=== PATIENT | female | born 1950 | race Caucasian/White ===

== ENCOUNTER 2018-02-16 08:38 | Day surgery (SDC) | END 2018-02-16 13:54 | disposition home or self-care (01) ==

== ENCOUNTER 2018-04-12 20:41 | Emergency (ER) | END 2018-04-13 00:17 | disposition home or self-care (01) ==

== ENCOUNTER 2018-04-21 19:13 | Inpatient (IN) | END 2018-05-12 18:22 | disposition home health service (06) | DRG 193 ==

== ENCOUNTER 2019-02-27 13:21 | Inpatient (IN) | payer MEDICARE, OTHER ==
[~2019-02-27] VITALS: Ht 160 cm; Wt 118.0 kg
[~2019-02-27 13:21] MED LIST: ASPI-817 PO; CYCL5TAB PO; FURO-109 PO; GLIP5TAB13 PO; ISOS60TA PO; LISI40TA3 PO; METF100010 PO; METO-336 PO; MONT10TA24 PO; OXYB5TAB22 PO; SILD20TA PO; SIMV40TA2 PO; TRAM50TA PO
[2019-02-27] MEDS ORDERED: morphine 4 MG/ML VIAL IV STA (13:55)
[2019-02-27] MEDS ORDERED: ONDANSETRON 4 MG INJ IV STA (13:55)
[2019-02-27] MEDS ORDERED: ASPIRIN 325 MG TAB PO STA (13:55)
[2019-02-27] MEDS ORDERED: PANTOPRAZOLE 40 MG INJ IV ONE (14:00)
[2019-02-27] MEDS ORDERED: IPRATROPIUM (NEB) 0.5 MG/2.5 ML AMP NEB STA (14:01)
[2019-02-27] MEDS ORDERED: ALBUTEROL 0.083% (NEB) 2.5 MG/3 ML AMP NEB STA (14:01)
--- NOTE | 2019-02-27 14:15 | ERD ---
ER Documentation Chief Complaint Chief Complaint CHEST PAIN RADIATING TO LT SHOULDER AND RT FOOT PAIN X 3 DAYS HPI This is a 68-year-old female with significant past medical history which includes asthma, sleep apnea, diabetes mellitus type 2, hyperlipidemia, hypertension who presents to the emergency department complaining of chest pain that began 3 days prior to arrival. The patient indicates that the pain has been intermittent. It is a pressure-like sensation. Just prior to arrival began to radiate to her left lower quadrant. Her daughter became concerned and immediately brought her to the emergency department to be further evaluated. The patient states that the pain does not radiate to her back. She is complaining of mild difficulty breathing but states that her dyspnea is similar nature to previous asthma exacerbations. She denies any shortness of breath at rest or exertion. The patient takes aspirin on a daily basis but did not take her aspirin today. The patient also states that she has chronic pain and takes cyclobenzaprine for muscle relaxants tramadol Naprosyn and meloxicam. The patient has been compliant with her medications. She is also on 40 mg of Lasix on a daily basis. The patient is also complaining of right foot pain. She states that this is progressively worsened over the past 3 days. On January 08, 2019 roughly a month and a half ago the patient underwent an anterior Royal performed by Dr. Jean MARKS. She states the pain is over the inoculation site on the dorsal aspect of the right foot. She does complain of mild right calf tenderness for the past 3 days. She however denies any swelling of her lower extremities. ROS All systems reviewed and are negative except as per history of present illness. Medications Home Meds Active Scripts Aspirin* (Aspirin* EC) 81 Mg Rhina., 81 MG PO DAILY for 30 Days Prov:GINO CASTELLANOLANA 05/12/18 Reported Medications Sildenafil Citrate* (Sildenafil Citrate*) 20 Mg Tablet, 20 MG PO TID, TAB 02/16/18 Metformin Hcl* (Metformin Hcl*) 1,000 Mg Tablet, 1000 MG PO WITH BREAKFAST DINNE, #60 TAB 02/16/18 Furosemide* (Lasix*) 40 Mg Tablet, 40 MG PO DAILY, TAB 02/16/18 Isosorbide Mononitrate* (Isosorbide Mononitrate*) 60 Mg Tab.er.24h, 60 MG PO DAILY, TAB 5/22/18 Glipizide* (Glipizide*) 5 Mg Tablet, 5 MG PO AC BREAKFAST, TAB 02/16/18 Montelukast Sodium* (Montelukast Sodium*) 10 Mg Tablet, 10 MG PO QHS, #30 TAB 02/16/18 Lisinopril* (Lisinopril*) 40 Mg Tablet, 40 MG PO DAILY, #30 TAB 02/16/18 Cyclobenzaprine Hcl* (Cyclobenzaprine Hcl*) 5 Mg Tablet, 5 MG PO Q8H PRN for MUSCLE SPASMS, #60 TAB 02/16/18 Tramadol Hcl* (Ultram*) 50 Mg Tablet, 50 MG PO Q6H PRN for PAIN, TAB 02/16/18 Metoprolol Succinate* (Toprol XL*) 100 Mg Tab.sr.24h, 100 MG PO DAILY, #30 TAB 02/16/18 Oxybutynin Chloride* (Ditropan* XL) 5 Mg Tabsr, 5 MG PO DAILY, TAB.SA 02/16/18 Simvastatin* (Zocor*) 40 Mg Tablet, 40 MG PO QHS, #30 TAB 02/16/18 Allergies Allergies: Coded Allergies: No Known Allergy (Unverified , 04/21/18) PMhx/Soc History of Surgery: Yes (LAP GAMA, C/S, arthrectomy rgt leg) Anesthesia Reaction: No Hx Neurological Disorder: No Hx Respiratory Disorders: Yes (COPD, SLEEP APNEA) Hx Cardiac Disorders: Yes (HTN) Hx Psychiatric Problems: No Hx Miscellaneous Medical Probl: Yes (See EMR for details. ) Hx Alcohol Use: No Hx Substance Use: No Hx Tobacco Use: No Smoking Status: Never smoker Physical Exam Vitals Vital Signs Date Temp Pulse Resp B/P (MAP) Pulse Ox O2 O2 Flow FiO2 Time Delivery Rate 02/27/19 Nasal 3 14:11 Cannula 02/27/19 98.1 79 18 173/71 96 13:23 (105) Physical Exam Constitutional:Well-developed. Well-nourished. HEENT:Normocephalic. Atraumatic.Pupils were equal round reactive to light. Moist mucous membranes.No tonsillar exudates. Neck: No nuchal rigidity. No lymphadenopathy. No posterior cervical spine tenderness or step-offs. Respiratory: Not using accessory muscles of respiration.Lungs were clear to auscultation bilaterally. No rhonchi. No rales. Wheezing on end auscultation bilaterally Cardiovascular: Regular rate regular rhythm.No murmurs. No rubs were appreciated.S1, S2 normal. Distal pulses are palpable 2+ bilaterally. No reproducible chest tenderness crepitus or ecchymosis. GI: Abdomen was obese so exam is limited due to body habitus. Nontender. Non Distended. No pulsatile abdominal masses or bruits. No rebound. No guarding. B owel sounds were present and normal. Muscle skeletal: Full range of motion of both the upper and lower extremities bilaterally.Normal muscle tone.tenderness of the right calf with no asymmetrical swelling. Negative Homans sign. Skin: No petechia, no purpura. No lesions on the palms or the soles of the feet. No maculopapular rash. Mild tenderness of the dorsal aspect of the right foot over the proximal fifth metatarsal with no obvious bony deformities. Patient states this was the inoculation site for her procedure but there is no pain out of proportion to physical exam, no ecchymosis. NEURO: Patient was alert, awake, orientated x3.No facial droop. Gait observed and normal with no ataxia.Speech had regular rate and rhythm. No focal neurological deficits. Result Diagram: 02/27/19 1408 02/27/19 1408 Results 24 hrs Laboratory Tests Test 02/27/19 14:08 White Blood Count 13.0 10^3/ul Red Blood Count 4.73 10^6/ul Hemoglobin 15.2 g/dl Hematocrit 46.4 % Mean Corpuscular Volume 98.1 fl Mean Corpuscular Hemoglobin 32.1 pg Mean Corpuscular Hemoglobin Concent 32.8 g/dl Red Cell Distribution Width 13.0 % Platelet Count 225 10^3/UL Mean Platelet Volume 10.9 fl Immature Granulocytes % 0.400 % Neutrophils % 81.4 % Lymphocytes % 11.0 % Monocytes % 6.2 % Eosinophils % 0.8 % Basophils % 0.2 % Nucleated Red Blood Cells % 0.0 /100WBC Immature Granulocytes # 0.050 10^3/ul Neutrophils # 10.6 10^3/ul Lymphocytes # 1.4 10^3/ul Monocytes # 0.8 10^3/ul Eosinophils # 0.1 10^3/ul Basophils # 0.0 10^3/ul Nucleated Red Blood Cells # 0.0 10^3/ul Prothrombin Time 12.8 Sec Prothrombin Time Ratio 1.0 INR International Normalized Ratio 0.95 Activated Partial Thromboplast Time 31.5 Sec Urine Color YELLOW Urine Clarity SLIGHTLY CLOUDY Urine pH 5.0 Urine Specific Jewett 1.021 Urine Ketones NEGATIVE mg/dL Urine Nitrite NEGATIVE mg/dL Urine Bilirubin NEGATIVE mg/dL Urine Urobilinogen NEGATIVE mg/dL Urine Leukocyte Esterase NEGATIVE Cornelio/ul Urine Microscopic RBC 3 /HPF Urine Microscopic WBC 2 /HPF Urine Squamous Epithelial Cells FEW /HPF Urine Bacteria FEW /HPF Urine Mucus FEW /HPF Urine Hemoglobin NEGATIVE mg/dL Urine Glucose NEGATIVE mg/dL Urine Total Protein NEGATIVE mg/dl Sodium Level 139 mmol/L Potassium Level 3.9 mmol/L Chloride Level 100 mmol/L Carbon Dioxide Level 31 mmol/L Anion Gap 8 Blood Urea Nitrogen 19 mg/dl Creatinine 0.69 mg/dl Est Glomerular Filtrat Rate mL/min > 60 mL/min Glucose Level 188 mg/dl Calcium Level 9.2 mg/dl Total Bilirubin 1.0 mg/dl Direct Bilirubin 0.00 mg/dl Indirect Bilirubin 1.0 mg/dl Aspartate Amino Transf (AST/SGOT) 17 IU/L Alanine Aminotransferase (ALT/SGPT) 22 IU/L Alkaline Phosphatase 69 IU/L Creatine Kinase 57 IU/L Creatine Kinase Index 0.7 Creatinine Kinase MB (Mass) 0.42 ng/ml Troponin I < 0.012 ng/ml B-Type Natriuretic Peptide 601 PG/ML Total Protein 7.2 g/dl Albumin 3.9 g/dl Globulin 3.30 g/dl Albumin/Globulin Ratio 1.18 Current Medications Medications Dose Sig/Herb Start Time Status Last (Trade) Ordered Route PRN Stop Time Admin Dose Reason Admin Aspirin 325 mg ONCE STAT 02/27/19 DC 02/27/19 (Aspirin) PO 13:55 02/27/19 14:37 14:01 Morphine 4 mg ONCE STAT 02/27/19 DC 02/27/19 Sulfate IV 13:55 02/27/19 14:37 (morphine) 14:01 Ondansetron 4 mg ONCE STAT 02/27/19 DC 02/27/19 HCl (Zofran IV 13:55 02/27/19 14:37 Inj) 14:01 40 mg ONCE ONCE 02/27/19 DC 02/27/19 Pantoprazole IV 14:00 02/27/19 14:37 (Protonix 14:01 Iv) Albuterol 5 mg ONCE STAT 02/27/19 DC 02/27/19 (Proventil NEB 14:01 02/27/19 14:56 0.083% (Neb)) 14:02 Ipratropium 0.5 mg ONCE STAT 02/27/19 DC 02/27/19 [place] NEB 14:01 02/27/19 14:56 (Atrovent 14:02 0.02% (Neb)) Ondansetron 4 mg ER BRIDGE 02/27/19 HCl (Zofran PRN IV 15:30 02/28/19 Inj) NAUSEA/VOMITI 15:29 NG 650 mg ER BRIDGE 02/27/19 Acetaminophen PRN PO 15:30 02/28/19 (Tylenol .MILD PAIN 15:29 Tab) 1-3 OR TEMP Procedures/MDM The patient presented to the emergency department with chest pain. My clinical evaluation and workup was to distinguish minor causes of chest pain from acute life threatening conditions such as myocardial infarction, pulmonary embolism, aortic dissection, esophageal rupture, cardiac tamponade. The patient was placed on a vocational training director and continuous pulse oximetry. IV access established by nursing staff. The patient received aspirin. She was also given morphine and Zofran. Her chest pain had improved. Initially it was 8 out of 10 intensity. After opiate analgesic medication aspirin the patient's chest pain improved to 4 out of 10. 12 Lead EKG tracing ordered and reviewed by myself showed: Normal sinus rhythm of 78 bpm and no arrhythmia. CT interval normal. Frequent PVCs. QRS duration normal. No ST segment elevation No ST segment depression. No changes consistent with acute ischemia. The patient also complained of right calf tenderness. There is no signs of arterial insufficiency. Venous duplex ultrasounds indicated there is no evidence of a deep vein thrombosis. When the patient initially arrived she had mild hypoxia. She is on home oxygen between 5 AM and 10 AM. She states she utilizes her CPAP on a daily basis between midnight and 5 AM. She does not know how many liters of home oxygen she requires. Patient will be admitted to the physician Dr. De La Paz who she is seen in the past. I spoke with Dr. Pacheco. The patient will receive serial twelve-lead EKG tracings and cardiac set of enzymes. Departure Diagnosis: Primary Impression: Chest pain Chest pain type: unspecified Qualified Codes: R07.9 - Chest pain, unspecified Additional Impression: Asthma exacerbation Asthma severity: mild Asthma persistence: intermittent Qualified Codes: J45.21 - Mild intermittent asthma with (acute) exacerbation Condition: Serious SUGAR KHOURY MD Feb 27, 2019 14:15
[2019-02-27] MEDS ORDERED: ACETAMINOPHEN 325 MG TAB PO PRN (15:30)
[2019-02-27] MEDS ORDERED: ONDANSETRON 4 MG INJ IV PRN ×2 (15:30→19:00)
[2019-02-27] MEDS ORDERED: GABA100C14 PO (16:15)
[2019-02-27] MEDS ORDERED: NAPR-688 PO (16:15)
[2019-02-27] MEDS ORDERED: ASPI-817 PO (16:16)
[2019-02-27] MEDS ORDERED: FLUT1BLS INHALATION (16:16)
[2019-02-27] MEDS ORDERED: NITR0.4T32 SL (16:16)
[2019-02-27] MEDS ORDERED: METO10TA3 PO (16:17)
[2019-02-27] MEDS ORDERED: POTA10TA37 PO (16:18)
[2019-02-27] MEDS ORDERED: CYCL5TAB PO (16:18)
[2019-02-27] MEDS ORDERED: FURO40TA4 PO (16:19)
[2019-02-27] MEDS ORDERED: GLIP5TAB13 PO (16:19)
[2019-02-27] MEDS ORDERED: LISI40TA3 PO (16:20)
[2019-02-27] MEDS ORDERED: ISOS60TA PO (16:20)
[2019-02-27] MEDS ORDERED: METF100010 PO (16:21)
[2019-02-27] MEDS ORDERED: MONT10TA24 PO (16:22)
[2019-02-27] MEDS ORDERED: METO-336 PO (16:22)
[2019-02-27] MEDS ORDERED: OXYB5TAB7 PO (16:23)
[2019-02-27] MEDS ORDERED: SILD20TA PO (16:23)
[2019-02-27] MEDS ORDERED: TRAM50TA PO (16:24)
[2019-02-27] MEDS ORDERED: SIMV40TA2 PO (16:24)
[2019-02-27] MEDS ORDERED: MELO15TA30 PO (16:25)
[2019-02-27] MEDS ORDERED: ALBU18HF INHALATION (16:25)
[2019-02-27 19:00] VITALS: BP 128/60; PULSE 70; RESP 20
[2019-02-27] MEDS ORDERED: GLUCAGON 1 MG INJ IM PRN (19:30)
[2019-02-27] MEDS ORDERED: GLUCOSE GEL 15 GRAM TUBE PO PRN ×2 (19:30)
[2019-02-27] MEDS ORDERED: GLUCOSE GEL 15 GRAM TUBE BUCCAL PRN (19:30)
[2019-02-27] MEDS ORDERED: DEXTROSE 50% 50 ML SYRINGE IV PRN ×2 (19:30)
[2019-02-27] MEDS ORDERED: POTASSIUM CHLORIDE (SR) 20 MEQ TAB PO STA (19:47)
[2019-02-27 20:00] VITALS: PULSE 80
[2019-02-27] MEDS: INSULIN ASPART [NOVOLOG] 3 ML PEN SC SCH (21:00)
[2019-02-28] VITALS (9 sets, daily range): BP systolic 129–160; BP diastolic 59–72; PULSE 55–86; RESP 18–20
[2019-02-28] MEDS: morphine 2 MG INJ IV PRN ×4 (01:34→20:53)
[2019-02-28] MEDS: ACCU-CHEK XX SCH (02:00)
[2019-02-28] MEDS: INSULIN ASPART [NOVOLOG] 3 ML PEN SC SCH ×4 (07:47→20:52)
[2019-02-28] MEDS ORDERED: NITROGLYCERIN (SL) 0.4 MG TAB SL PRN (11:30)
--- NOTE | 2019-02-28 12:25 | HP ---
Date/Time of Note Date/Time of Note DATE: 02/28/19 TIME: 12:20 Assessment/Plan VTE Prophylaxis Risk score (from Ns)>0 risk: 6 SCD applied (from Nsg): Yes Pharmacological prophylaxis: LMWH Lines/Catheters IV Catheter Type (from Nrsg): Saline Lock Assessment/Plan Assessment/Plan -Chest pain, rule out acute coronary syndrome will obtain cardiac enzymes q. 8 hours x 3, 2D echo. Dr. Gould is asked to see patient in cardiology consultation. -Intractable right foot pain swelling and inability to walk. Will obtain MRI of the right foot, podiatry consult . -Diabetes mellitus type 2 -HTN -Diastolic dysfunction congestive heart failure action fraction of 50% -Morbid obesity with BMI of 46.1 Further recommendations based on clinical course. Plan of care discussed with Dr. De La Paz. Result Diagram: 02/28/19 0521 02/28/19 0521 Results 24hrs Laboratory Tests Test 02/27/19 14:08 02/27/19 19:37 02/27/19 19:43 02/27/19 20:23 White Blood Count 13.0 H Red Blood Count 4.73 # Hemoglobin 15.2 # Hematocrit 46.4 # Mean Corpuscular 98.1 Volume Mean Corpuscular 32.1 Hemoglobin Mean Corpuscular 32.8 Hemoglobin Concent Red Cell 13.0 Distribution Width Platelet Count 225 # Mean Platelet 10.9 H Volume Immature 0.400 Granulocytes % Neutrophils % 81.4 H Lymphocytes % 11.0 L Monocytes % 6.2 Eosinophils % 0.8 Basophils % 0.2 Nucleated Red 0.0 Blood Cells % Immature 0.050 H Granulocytes # Neutrophils # 10.6 H Lymphocytes # 1.4 Monocytes # 0.8 Eosinophils # 0.1 Basophils # 0.0 Nucleated Red 0.0 Blood Cells # Prothrombin Time 12.8 Prothrombin Time 1.0 Ratio INR International 0.95 Normalized Ratio Activated 31.[address] Time Urine Color YELLOW Urine Clarity SLIGHTLY CLOUDY A Urine pH 5.0 Urine Specific 1.021 [place] Urine Ketones NEGATIVE Urine Nitrite NEGATIVE Urine Bilirubin NEGATIVE Urine Urobilinogen NEGATIVE Urine Leukocyte NEGATIVE Esterase Urine Microscopic 3 RBC Urine Microscopic 2 WBC Urine Squamous FEW Epithelial Cells Urine Bacteria FEW A Urine Mucus FEW A Urine Hemoglobin NEGATIVE Urine Glucose NEGATIVE Urine Total NEGATIVE Protein Sodium Level 139 Potassium Level 3.9 Chloride Level 100 Carbon Dioxide 31 Level Anion Gap 8 Blood Urea 19 Nitrogen Creatinine 0.69 Est Glomerular > 60 Filtrat Rate mL/min Glucose Level 188 Calcium Level 9.2 Total Bilirubin 1.0 Direct Bilirubin 0.00 Indirect Bilirubin 1.0 Aspartate Amino 17 Transf (AST/SGOT) Alanine 22 Aminotransferase ( ALT/SGPT) Alkaline 69 Phosphatase Creatine Kinase 57 56 Creatine Kinase 0.7 1.3 Index Creatinine Kinase 0.42 0.73 MB (Mass) Troponin I < 0.012 < 0.012 B-Type Natriuretic 601 H Peptide Total Protein 7.2 Albumin 3.9 Globulin 3.30 H Albumin/Globulin 1.18 Ratio Bedside Glucose 86 156 Test 02/28/19 00:24 02/28/19 05:21 02/28/19 07:45 02/28/19 11:21 Creatine Kinase 57 Creatine Kinase 1.5 Index Creatinine Kinase 0.83 MB (Mass) Troponin I < 0.012 < 0.012 White Blood Count 11.9 H Red Blood Count 4.37 Hemoglobin 14.1 Hematocrit 43.4 Mean Corpuscular 99.3 Volume Mean Corpuscular 32.3 Hemoglobin Mean Corpuscular 32.5 Hemoglobin Concent Red Cell 13.0 Distribution Width Platelet Count 210 Mean Platelet 10.8 H Volume Immature 0.400 Granulocytes % Neutrophils % 71.1 Lymphocytes % 16.5 Monocytes % 10.5 Eosinophils % 1.2 Basophils % 0.3 Nucleated Red 0.0 Blood Cells % Immature 0.050 H Granulocytes # Neutrophils # 8.4 H Lymphocytes # 2.0 Monocytes # 1.3 H Eosinophils # 0.1 Basophils # 0.0 Nucleated Red 0.0 Blood Cells # Sodium Level 140 Potassium Level 4.7 Chloride Level 100 Carbon Dioxide 35 H Level Anion Gap 5 Blood Urea 17 Nitrogen Creatinine 0.71 Est Glomerular > 60 Filtrat Rate mL/min Glucose Level 100 # Calcium Level 9.0 Bedside Glucose 103 142 HPI/ROS Admit Date/Time Admit Date/Time Feb 27, 2019 at 15:27 Hx of Present Illness The patient is 68-year-old female with diabetes mellitus type 2, congestive heart failure, hypertension, hyperlipidemia, asthma, osteoarthritis, sleep apnea and morbid obesity. Patient presented to the emergency room with complaints of chest pain of 3 days duration which has been intermittent. Patient describes pain as pressure-like sensation associated with mild difficulty breathing. Patient was brought to the emergency room by her daughter. Patient also complains of right foot pain and swelling stated that she is unable to step on it. Patient denies any fever chills denies any nausea vomiting, diarrhea, constipation. Patient was given morphine and Zofran in the emergency room. Patient is admitted for further evaluation and management to telemetry floor for further evaluation and management. ROS 12 point review of system is negative except for what mentioned in HPI PMH/Family/Social Past Medical History per HPI Medications Current Medications Acetaminophen (Tylenol Tab) 650 mg ER BRIDGE PRN PO .MILD PAIN 1-3 OR TEMP; Start 02/27/19 at 15:30; Stop 02/28/19 at 15:29 Morphine Sulfate (morphine) 2 mg Q4H PRN IV SEVERE PAIN LEVEL 7-10 Last administered on 02/28/19at 11:19; Admin Dose 2 MG; Start 02/27/19 at 19:00 Ondansetron HCl (Zofran Inj) 4 mg Q6H PRN IV NAUSEA AND/OR VOMITING; Start 02/27/19 at 19:00 Diagnostic Test (Pha) (Accu-Chek) 1 ea 02 XX ; Start 02/28/19 at 02:00 Insulin Aspart (Novolog Insulin Pen) NOVOLOG *MODERATE* ALGORITHM WITH MEALS BEDTIME SC ; Start 02/27/19 at 21:00 Miscellaneous Information 1 ea NOTE XX ; Start 02/27/19 at 19:30 Glucose (Glutose) 15 gm Q15M PRN PO DECREASED GLUCOSE; Start 02/27/19 at 19:30 Glucose (Glutose) 22.5 gm Q15M PRN PO DECREASED GLUCOSE; Start 02/27/19 at 19:30 Dextrose (D50w Syringe) 25 ml Q15M PRN IV DECREASED GLUCOSE; Start 02/27/19 at 19:30 Dextrose (D50w Syringe) 50 ml Q15M PRN IV DECREASED GLUCOSE; Start 02/27/19 at 19:30 Glucagon (Glucagen) 1 mg Q15M PRN IM DECREASED GLUCOSE; Start 02/27/19 at 19:30 Glucose (Glutose) 15 gm Q15M PRN BUCCAL DECREASED GLUCOSE; Start 02/27/19 at 19:30 Nitroglycerin (Nitroglycerin (Sl Tab) 0.4 Mg) 1 tab Q5M PRN SL ANGINA; Start 02/28/19 at 11:30 Furosemide (Lasix) 40 mg DAILY IV ; Start 02/28/19 at 11:30 Aspirin (Halfprin) 81 mg DAILY PO ; Start 03/01/19 at 09:00 Isosorbide Mononitrate (Imdur) 60 mg DAILY PO ; Start 03/01/19 at 09:00 Lisinopril (Zestril) 40 mg DAILY PO ; Start 03/01/19 at 09:00 Metoprolol Succinate (Toprol Xl) 100 mg DAILY PO ; Start 03/01/19 at 09:00 Miscellaneous Information 40 mg QHS PO ; Start 02/28/19 at 21:00; Status UNV Coded Allergies: No Known Allergy (Unverified , 02/27/19) Past Surgical History Past Surgical Hx: other (LAP GAMA, arthrectomy rgt leg)) Family History Significant Family History: no pertinent family hx Social History Alcohol Use: none Smoking Status: Former smoker Drug Use: none Exam/Review of Systems Vital Signs Vitals Vital Signs Date Temp Pulse Resp B/P (MAP) Pulse Ox O2 O2 Flow FiO2 Time Delivery Rate 02/28/19 98.0 71 19 160/64 96 11:51 (96) 02/28/19 Nasal 2.0 07:40 Cannula Intake and Output 02/27/19 02/27/19 02/28/19 1515:00 23:00 07:00 IntakeIntake Total 700 ml BalanceBalance 700 ml Exam Constitutional: alert, oriented Head: normocephalic Neck: supple Respiratory: clear to auscultation Cardiovascular: regular rate and rhythm Gastrointestinal: soft, non-tender Musculoskeletal: nl extremities to inspection Extremities: normal pulses, other (R foot swelling and tenderness) Neurological: nl mental status REBECCA CASTELLANO Feb 28, 2019 12:25
[2019-02-28] MEDS: FUROSEMIDE 40 MG INJ IV SCH (13:08)
--- NOTE | 2019-02-28 15:31 | QN ---
Documentation Comment As Physician Advisor I have reviewed the chart and have determined that as of today, this patient continues to receive medically necessary care required for the diagnosis and treatment of illness or injury. There has been no unreasonable delay in the rendering of medically necessary services, and this medically necessary care requires a length of stay expected to be greater than two midnights. Additional information gained during the stay now suggests this patient should have been classified as an inpatient at the time of admission, and I will change the status to inpatient to reflect that medical judgment. Besides the notes from the medical providers, the following information was used in this determination: Intractible foot pain requiring imaging and consultation CHF, Diabetes, obesity, hypertension as comorbidities to admission for chest pain, rule out [place]. Please call me at [phone] with questions. DARCY LOPEZ MD Feb 28, 2019 15:31
--- NOTE | 2019-02-28 15:31 | CONS ---
DATE OF ADMISSION: 02/27/2019 DATE OF CONSULTATION: 02/28/2019 REASON FOR CONSULTATION: Chest pain, assess for acute coronary syndrome. REQUESTING PHYSICIAN: Dr. De La Paz. HISTORY OF PRESENT ILLNESS: Ms. Alegria is a 68-year-old female with history of diabetes mellitus, hypertension, possible urinary incontinence, dyslipidemia, diabetes mellitus, possible pulmonary hypertension, obstructive sleep apnea, prior cholecystectomy, possible PAD who presented with complaints of substernal chest pain ongoing for 1 week per patient, 3 days per chart biopsy, describes a pressure-like sensation, occurring at rest racing down through her abdomen and no change with physical activity and associated right foot and ankle pain, heel pain, inability to ambulate secondary to pain. Upon arrival in the emergency department, temperature 98.1, blood pressure 170/71, pulse 70, respiratory rate 18, satting 96%. The patient's labs showed white count 13, hemoglobin 15.2, platelet count 225, a sodium of 139, potassium 3.9, creatinine 0.69, BUN 19. Troponin negative. BNP of 601. The patient underwent a venous ultrasound revealing no sonographic evidence for DVT. A chest x-ray that revealed cardiomegaly and central pulmonary vascular congestion. The patient's electrocardiogram revealed sinus rhythm, rate of 78, normal axis, normal intervals, PVCs with nonspecific ST abnormalities. The patient was admitted to the floor and since admit to the floor, continues to complain of ankle pain, denies shortness of breath and has intermittent chest pain. PAST MEDICAL HISTORY: As above in HPI. MEDICATIONS PRIOR TO ADMIT: 1. Cyclobenzaprine. 2. Imdur 60 mg a day. 3. Zestril 40 mg daily. 4. Toprol-XL 100 mg daily. 5. Simethicone p.r.n. 6. Sildenafil 20 mg p.o. t.i.d. 7. Zocor for acute 8. Aspirin 81 mg daily. 9. Gabapentin 100 mg b.i.d. 10. Meloxicam. 11. Naproxen. 12. Tramadol. 13. Lasix 40 mg daily. 14. K-Dur. 15. Fluticasone. 16. Reglan. 17. Glipizide. 18. Metformin. ALLERGIES: NO KNOWN DRUG ALLERGIES. SOCIAL HISTORY: No current tobacco, quit times multiple years of a prior history of tobacco intake. No ETOH or illicit drug use. FAMILY HISTORY: No sudden cardiac or early CAD. REVIEW OF SYSTEMS: As above in HPI. CONSTITUTIONAL: No fevers, chills. PULMONARY: Shortness of breath. CARDIOVASCULAR: Chest pain. GASTROINTESTINAL: No vomiting. GENITOURINARY: No hematuria. MUSCULOSKELETAL: Right heel leg pain. LABORATORIES: As above in HPI with since admit the patient had a second troponin return negative, 2 negative troponins. IMAGING STUDIES: As above in HPI. No further imaging studies during this time. ECG: As above in HPI. No further electrograms for my review at this time. IMPRESSION: 1. Chest pain, assess for acute coronary syndrome. Negative troponin x2 at this time, somewhat atypical symptomatology for cardiology and multiple cardiac risk factors. 2. Congestive heart failure, question systolic versus diastolic, likely acute per story. 3. Hypertension. 4. Dyslipidemia by history. 5. Abnormal electrocardiogram, assess for acute coronary syndrome. 6. Premature ventricular contractions, assess for acute coronary syndrome. 7. Right heel ankle pain. 8. Diabetes mellitus. 9. Leukocytosis. RECOMMENDATIONS: 1. At this time, we would maintain patient on telemetry monitoring to follow rhythm and rate closely. 2. Complete the patient's rule out for myocardial infarction. to assure the patient's complex symptoms are not the result in acute coronary syndrome, acute myocardial infarction. 3. Would reinitiate the patient's baseline antihypertensives. The patient on Lasix diuresis at this time. 4. Check a 2D echo for patient fraction, wall motion, and any major abnormalities. 5. Give the patient sublingual nitroglycerin for recurrence of chest pain. 6. Continue to evaluate the patient's right heel and ankle pain and will additionally check an arterial Doppler to rule out any significant arterial occlusions causing the right leg pain. 7. Patient ruled out for myocardial infarction; we will consider possible stress testing in this patient to further evaluate possibility of significant recurrent chest pain. Thank you for allowing me to take part in the care of this patient. I will continue to follow her very closely with you. Further recommendations will be made as the patient progresses through his inpatient hospital clinical course. Dictated By: HARPAL REAL/PAVAN Conf#: [id number] DID#: [id number] CC: SHEEBA DE LA PAZ MD;*EndCC* MTDD
[2019-02-28] MEDS: ATORVASTATIN 20 MG TAB PO SCH (20:52)
[2019-03-01] VITALS (10 sets, daily range): BP systolic 106–162; BP diastolic 58–83; PULSE 58–94; RESP 17–20; Ht 160 cm; Wt 118.0 kg
[2019-03-01] MEDS: ACCU-CHEK XX SCH (02:00)
--- NOTE | 2019-03-01 02:41 | CONS ---
DATE OF ADMISSION: 02/28/2019 DATE OF CONSULTATION: 02/28/2019 REASON FOR CONSULTATION: Right foot pain. REFERRING PHYSICIAN: Marizol Miranda NP/Sheeba De La Paz MD HISTORY OF PRESENT ILLNESS: This is a 68-year-old female who complains of right foot pain, chronic, worsened with ambulation. The patient is currently admitted for chest pain. The patient currently i s being monitored in telemetry. PAST MEDICAL HISTORY: Includes diabetes, hypertension, hyperlipidemia, obstructive sleep apnea, and obesity. MEDICATIONS: Include: 1. Cyclobenzaprine. 2. Imdur 60 mg daily. 3. Zestril 40 mg daily. 4. Toprol 100 mg daily. 5. Simethicone. 6. Zocor. 7. Aspirin 81 mg daily. 8. Gabapentin 100 mg b.i.d. 9. Meloxicam. 10. Naprosyn. 11. Tramadol. 12. Lasix. 13. K-Dur. 14. Reglan. 15. Glipizide. 16. Metformin. ALLERGIES: NO KNOWN DRUG ALLERGIES. SOCIAL HISTORY: Denies any tobacco at this time. REVIEW OF SYSTEMS: Right foot pain. OBJECTIVE FINDINGS: VITAL SIGNS: Temperature 98.1, pulse 76, respiratory rate 20, blood pressure is 138/72, pulse ox is 100 per 2 liters nasal cannula. GENERAL: The patient is awake, alert, eating, in no acute distress. EXTREMITIES: The patient is morbidly obese. Right lower extremity with a 2+ pitting edema. Right f oot pain at the tarsometatarsal joints. No instability with valgus stress of the foot or with talar tilt or anterior drawer of the ankle; 5/5 dorsiflexion and plantar flexion of the right ankle. The p atient with normal sensation. No signs of infection. LABORATORY DATA: WBC 11.9, hemoglobin 14.1, hematocrit 43.4, platelets 210. MRI reveals moderate ta rsometatarsal osteoarthrosis with a partial-thickness chondral loss and high-grade chondral loss, mar row edema and spurring, osteoarthrosis of the first metatarsophalangeal joint and edema of the soft t issues. Arterial ultrasound showed no evidence of hemodynamically-significant lesion. Venous ultrasound nega tive for DVT. ASSESSMENT: 1. Right foot pain 2. Right foot edema. 3. Osteoarthrosis of tarsometatarsal joints of the right foot and first metatarsophalangeal joint. PLAN: Discussed imaging studies with the patient and family, would benefit from non-operative treatm ent. She currently is on various non-steroidals. Discussed use of accommodative inserts and footwea r. The patient may benefit from aspiration and injection of tarsometatarsal joints with a corticoste roid. The patient is amenable and can plan procedure during this hospitalization. We will hold off until completion of cardiac workup. Dictated By: LUZ MANN/PAVAN Conf#: [id number] DID#: [id number] CC: SHEEBA DE LA PAZ MD;*EndCC*
[2019-03-01] MEDS: INSULIN ASPART [NOVOLOG] 3 ML PEN SC SCH ×4 (08:00→21:00)
[2019-03-01] MEDS: ASPIRIN (EC) 81 MG TAB PO SCH (08:17)
[2019-03-01] MEDS: METOPROLOL (XL) 100 MG TAB PO SCH (08:17)
[2019-03-01] MEDS: LISINOPRIL 20 MG TAB PO SCH (08:17)
[2019-03-01] MEDS: ISOSORBIDE MONONITRATE(SR)60 MG TAB PO SCH (08:18)
[2019-03-01] MEDS: FUROSEMIDE 40 MG INJ IV SCH (08:19)
--- NOTE | 2019-03-01 09:23 | CONS ---
Consult Date/Type/Reason Admit Date/Time Feb 28, 2019 at 15:28 Initial Consult Date Date/Time of Note DATE: 03/01/19 TIME: 09:19 Subjective Pt was set up for stres test - became dizzy and had tach with freq PVCs - better when placed back to bed - will hold off on stress test today - con't med therapy - re-schedule for tomorrow if stable. HOLD diuresis for now. ROS: No fever, no chills, no nausea, no vomiting, no diarrhea/constipation No recent weight changes No chest pain, no PND, no orthopnea + SOB, + dizzy when set up No dizziness, blurred vision No thirst, no heat or cold intolerance Objective Vitals Vital Signs Date Temp Pulse Resp B/P (MAP) Pulse Ox O2 O2 Flow FiO2 Time Delivery Rate 03/01/19 71 08:19 03/01/19 Nasal 2.0 07:45 Cannula 03/01/19 97.9 20 162/71 97 07:17 (101) Intake and Output 02/28/19 02/28/19 03/01/19 1515:00 23:00 07:00 IntakeIntake Total 500 ml 800 ml OutputOutput Total 6 ml BalanceBalance 494 ml 800 ml Exam General: WN/WD/NAD, AOx 3 HEENT: Unicetric/atraumatic/EOMI (follow commands) NECK: JVD elevated, no thyromegaly Lymph: no lymphadenopathy HEART: regular with no S3, II/ systolic murmur at apex, PMI L LUNGS: Coarse sounds ABD: soft, NT, ND, +BS : Intact Neuro: non focal SKIN: chronic changes EXT: + edema Results/Medications Result Diagram: 02/28/1952002/28/19520 Results 24 hrs Laboratory Tests Test 02/28/19 11:21 02/28/19 17:54 02/28/19 20:50 03/01/19 08:10 Bedside Glucose 142 162 135 124 Home Meds Reported Medications Meloxicam* (Mobic*) 15 Mg Tablet, 15 MG PO DAILY, #30 TAB 02/27/19 Albuterol Sulfate* (Ventolin HFA*) 18 Gm Hfa.aer.ad, 2 PUFF INHALATION Q4H, #1 INHALER 02/27/19 Tramadol Hcl* (Ultram*) 50 Mg Tablet, 50 MG PO NEEDED PRN for PAIN, TAB 02/27/19 Simvastatin* (Zocor*) 40 Mg Tablet, 40 MG PO QHS, #30 TAB 02/27/19 Sildenafil Citrate* (Sildenafil Citrate*) 20 Mg Tablet, 20 MG PO TID, TAB 02/27/19 Oxybutynin Chloride* (Ditropan*) 5 Mg Tab, 5 MG PO TID, TAB 02/27/19 Montelukast Sodium* (Montelukast Sodium*) 10 Mg Tablet, 10 MG PO QHS, #30 TAB 02/27/19 Metoprolol Succinate* (Toprol XL*) 100 Mg Tab.sr.24h, 100 MG PO DAILY, #30 TAB 02/27/19 Metformin Hcl* (Metformin Hcl*) 1,000 Mg Tablet, 1000 MG PO WITH BREAKFAST DINNE, #60 TAB 02/27/19 Lisinopril* (Lisinopril*) 40 Mg Tablet, 40 MG PO DAILY, #30 TAB 02/27/19 Isosorbide Mononitrate* (Isosorbide Mononitrate*) 60 Mg Tab.er.24h, 60 MG PO DAILY, TAB 02/27/19 Glipizide* (Glipizide*) 5 Mg Tablet, 5 MG PO AC BREAKFAST, TAB 02/27/19 Furosemide* (Furosemide*) 40 Mg Tablet, 40 MG PO DAILY, TAB 02/27/19 Cyclobenzaprine Hcl* (Cyclobenzaprine Hcl*) 5 Mg Tablet, 5 MG PO QHS, #60 TAB 02/27/19 Potassium Chloride* (K-Dur*) 10 Meq Tab.prt.sr, 10 MEQ PO DAILY, TAB 02/27/19 Metoclopramide Hcl* (Metoclopramide Hcl*) 10 Mg Tablet, 10 MG PO TID, TAB 02/27/19 Fluticasone/Vilanterol (Breo Ellipta 200-25 Mcg INH) 1 Each Blst.w.dev, 1 PUFF INHALATION DAILY, #1 INHALER 02/27/19 Aspirin* (Aspirin* EC) 81 Mg Tablet.dr, 81 MG PO DAILY, TAB 02/27/19 Nitroglycerin* (Nitroglycerin* SL) 0.4 Mg Tab.subl, 0.4 MG SL Q5MIN PRN for CHEST PAIN, BOTTLE 02/27/19 Naproxen* (Naproxen*) 500 Mg Tablet, 500 MG PO BID, TAB 02/27/19 Gabapentin* (Gabapentin*) 100 Mg Capsule, 100 MG PO BID, #90 CAP 02/27/19 Discontinued Reported Medications Sildenafil Citrate* (Sildenafil Citrate*) 20 Mg Tablet, 20 MG PO TID, TAB 02/16/18 Metformin Hcl* (Metformin Hcl*) 1,000 Mg Tablet, 1000 MG PO WITH BREAKFAST DINNE, #60 TAB 02/16/18 Furosemide* (Lasix*) 40 Mg Tablet, 40 MG PO DAILY, TAB 02/16/18 Isosorbide Mononitrate* (Isosorbide Mononitrate*) 60 Mg Tab.er.24h, 60 MG PO DAILY, TAB 02/16/18 Glipizide* (Glipizide*) 5 Mg Tablet, 5 MG PO AC BREAKFAST, TAB 02/16/18 Montelukast Sodium* (Montelukast Sodium*) 10 Mg Tablet, 10 MG PO QHS, #30 TAB 02/16/18 Lisinopril* (Lisinopril*) 40 Mg Tablet, 40 MG PO DAILY, #30 TAB 02/16/18 Cyclobenzaprine Hcl* (Cyclobenzaprine Hcl*) 5 Mg Tablet, 5 MG PO Q8H PRN for MU SCLE SPASMS, #60 TAB 02/16/18 Tramadol Hcl* (Ultram*) 50 Mg Tablet, 50 MG PO Q6H PRN for PAIN, TAB 02/16/18 Metoprolol Succinate* (Toprol XL*) 100 Mg Tab.sr.24h, 100 MG PO DAILY, #30 TAB 02/16/18 Oxybutynin Chloride* (Ditropan* XL) 5 Mg Tabsr, 5 MG PO DAILY, TAB.SA 02/16/18 Simvastatin* (Zocor*) 40 Mg Tablet, 40 MG PO QHS, #30 TAB 02/16/18 Discontinued Scripts Aspirin* (Aspirin* EC) 81 Mg Tablet.dr, 81 MG PO DAILY for 30 Days Prov:REBECCA CASTELLANO 05/12/18 Medications Current Medications Morphine Sulfate (morphine) 2 mg Q4H PRN IV SEVERE PAIN LEVEL 7-10 Last administered on 02/28/19at 20:53; Admin Dose 2 MG; Start 02/27/19 at 19:00 Ondansetron HCl (Zofran Inj) 4 mg Q6H PRN IV NAUSEA AND/OR VOMITING; Start 02/27/19 at 19:00 Diagnostic Test (Pha) (Accu-Chek) 1 ea 02 XX ; Start 02/28/19 at 02:00 Insulin Aspart (Novolog Insulin Pen) NOVOLOG *MODERATE* ALGORITHM WITH MEALS BEDTIME SC Last administered on 02/28/19at 18:07; Admin Dose 2 UNIT; Start 02/27/19 at 21:00 Miscellaneous Information 1 ea NOTE XX ; Start 02/27/19 at 19:30 Glucose (Glutose) 15 gm Q15M PRN PO DECREASED GLUCOSE; Start 02/27/19 at 19:30 Glucose (Glutose) 22.5 gm Q15M PRN PO DECREASED GLUCOSE; Start 02/27/19 at 19:30 Dextrose (D50w Syringe) 25 ml Q15M PRN IV DECREASED GLUCOSE; Start 02/27/19 at 19:30 Dextrose (D50w Syringe) 50 ml Q15M PRN IV DECREASED GLUCOSE; Start 02/27/19 at 19:30 Glucagon (Glucagen) 1 mg Q15M PRN IM DECREASED GLUCOSE; Start 02/27/19 at 19:30 Glucose (Glutose) 15 gm Q15M PRN BUCCAL DECREASED GLUCOSE; Start 02/27/19 at 19:30 Nitroglycerin (Nitroglycerin (Sl Tab) 0.4 Mg) 1 tab Q5M PRN SL ANGINA; Start 02/28/19 at 11:30 Furosemide (Lasix) 40 mg DAILY IV Last administered on 03/01/19at 08:19; Admin Dose 40 MG; Start 02/28/19 at 11:30 Aspirin (Halfprin) 81 mg DAILY PO Last administered on 03/01/19at 08:17; Admin Dose 81 MG; Start 03/01/19 at 09:00 Isosorbide Mononitrate (Imdur) 60 mg DAILY PO Last administered on 03/01/19at 08:18; Admin Dose 60 MG; Start 03/01/19 at 09:00 Lisinopril (Zestril) 40 mg DAILY PO Last administered on 03/01/19at 08:17; Admin Dose 40 MG; Start 03/01/19 at 09:00 Metoprolol Succinate (Toprol Xl) 100 mg DAILY PO Last administered on 03/01/19at 08:17; Admin Dose 100 MG; Start 03/01/19 at 09:00 Atorvastatin Calcium (Lipitor) 20 mg DAILY@21 PO Last administered on 02/28/19at 20:52; Admin Dose 20 MG; Start 02/28/19 at 21:00 Assessment/Plan Hospital Course (Demo Recall) 1. Chest pain, assess for acute coronary syndrome. Negative troponin x2 at this time, somewhat atypical symptomatology for cardiology and multiple cardiac risk factors. Not able to do stress test as pt was symptmatic with dizzziness and tachy - will hold off on diuresis and follow. 2. Congestive heart failure, question systolic versus diastolic, likely acute per story. Con't afterload reduction 3. Hypertension - martha rnow. 4. Dyslipidemia by history. 5. Abnormal electrocardiogram, assess for acute coronary syndrome. 6. Premature ventricular contractions, assess for acute coronary syndrome - Stress test when stable, ECHO to follow. 7. Right heel ankle pain. 8. Diabetes mellitus- on meds, keep euglycemic. 9. Leukocytosis- con't anti-bx. HELEN ROY MD Mar 01, 2019 09:23
--- NOTE | 2019-03-01 19:14 | PN ---
Date/Time of Note Date/Time of Note DATE: 03/01/19 TIME: 19:12 Assessment/Plan VTE Prophylaxis Risk score (from Nsg)>0 risk: 6 SCD applied (from Nsg): Yes Pharmacological prophylaxis: LMWH Lines/Catheters IV Catheter Type (from Nrsg): Saline Lock Assessment/Plan Hospital Course Patient unable to tolerate stress test, became dizzy and had tach with freq PVCs. rescheduled for stress test tomorrow Assessment/Plan -Chest pain, rule out acute coronary syndrome, cardiac enzymes are neg x 3, f/up on 2D echo. Dr. Gould is following in cardiology consultation. -Intractable right foot pain swelling and inability to walk. Osteoarthrosis of tarsometatarsal joints of the right foot and first metatarsophalangeal joint. podiatry consult . -Diabetes mellitus type 2 -HTN -Diastolic dysfunction congestive heart failure action fraction of 50% -Morbid obesity with BMI of 46.1 Further recommendations based on clinical course. Plan of care discussed with Dr. De La Paz. Result Diagram: 02/28/1952002/28/19520 Results 24hrs Laboratory Tests Test 02/28/19 20:50 03/01/19 08:10 03/01/19 11:59 03/01/19 16:57 Bedside Glucose 135 124 175 146 Exam/Review of Systems Exam Vitals Vital Signs Date Temp Pulse Resp B/P (MAP) Pulse Ox O2 O2 Flow FiO2 Time Delivery Rate 03/01/19 78 16:59 03/01/19 98.5 18 115/58 97 15:35 (77) 03/01/19 Nasal 2.0 07:45 Cannula Intake and Output 02/28/19 02/28/19 03/01/19 1515:00 23:00 07:00 IntakeIntake Total 500 ml 800 ml OutputOutput Total 6 ml BalanceBalance 494 ml 800 ml Constitutional: alert, oriented Respiratory: clear to auscultation Cardiovascular: regular rate and rhythm Gastrointestinal: soft, non-tender Musculoskeletal: nl extremities to inspection Extremities: normal pulses, other Results Results 24hrs Laboratory Tests Test 02/28/19 20:50 03/01/19 08:10 03/01/19 11:59 03/01/19 16:57 Bedside Glucose 135 124 175 146 Medications Medication Current Medications Morphine Sulfate (morphine) 2 mg Q4H PRN IV SEVERE PAIN LEVEL 7-10 Last administered on 02/28/19at 20:53; Admin Dose 2 MG; Start 02/27/19 at 19:00 Ondansetron HCl (Zofran Inj) 4 mg Q6H PRN IV NAUSEA AND/OR VOMITING; Start 02/27/19 at 19:00 Diagnostic Test (Pha) (Accu-Chek) 1 ea 02 XX ; Start 02/28/19 at 02:00 Insulin Aspart (Novolog Insulin Pen) NOVOLOG *MODERATE* ALGORITHM WITH MEALS BEDTIME SC Last administered on 03/01/19at 17:01; Admin Dose 2 UNIT; Start 02/27/19 at 21:00 Miscellaneous Information 1 ea NOTE XX ; Start 02/27/19 at 19:30 Glucose (Glutose) 15 gm Q15M PRN PO DECREASED GLUCOSE; Start 02/27/19 at 19:30 Glucose (Glutose) 22.5 gm Q15M PRN PO DECREASED GLUCOSE; Start 02/27/19 at 19:30 Dextrose (D50w Syringe) 25 ml Q15M PRN IV DECREASED GLUCOSE; Start 02/27/19 at 19:30 Dextrose (D50w Syringe) 50 ml Q15M PRN IV DECREASED GLUCOSE; Start 02/27/19 at 19:30 Glucagon (Glucagen) 1 mg Q15M PRN IM DECREASED GLUCOSE; Start 02/27/19 at 19:30 Glucose (Glutose) 15 gm Q15M PRN BUCCAL DECREASED GLUCOSE; Start 02/27/19 at 19:30 Nitroglycerin (Nitroglycerin (Sl Tab) 0.4 Mg) 1 tab Q5M PRN SL ANGINA; Start 02/28/19 at 11:30 Furosemide (Lasix) 40 mg DAILY IV Last administered on 03/01/19at 08:19; Admin Dose 40 MG; Start 02/28/19 at 11:30 Aspirin (Halfprin) 81 mg DAILY PO Last administered on 03/01/19at 08:17; Admin Dose 81 MG; Start 03/01/19 at 09:00 Isosorbide Mononitrate (Imdur) 60 mg DAILY PO Last administered on 03/01/19at 08:18; Admin Dose 60 MG; Start 03/01/19 at 09:00 Lisinopril (Zestril) 40 mg DAILY PO Last administered on 03/01/19 08:17; Admin Dose 40 MG; Start 03/01/19 at 09:00 Metoprolol Succinate (Toprol Xl) 100 mg DAILY PO Last administered on 03/01/19 08:17; Admin Dose 100 MG; Start 03/01/19 at 09:00 Atorvastatin Calcium (Lipitor) 20 mg DAILY@21 PO Last administered on 02/28/19at 20:52; Admin Dose 20 MG; Start 02/28/19 at 21:00 REBECCA CASTELLANO Mar 01, 2019 19:14
[2019-03-01] MEDS: ATORVASTATIN 20 MG TAB PO SCH (21:08)
[2019-03-01] MEDS: SENNA TAB PO SCH (23:37)
[2019-03-02] VITALS (9 sets, daily range): BP systolic 116–150; BP diastolic 67–74; PULSE 67–99; RESP 18–22
[2019-03-02] MEDS: ACCU-CHEK XX SCH (02:00)
[2019-03-02] MEDS: INSULIN ASPART [NOVOLOG] 3 ML PEN SC SCH ×4 (08:00→21:00)
[2019-03-02] MEDS ORDERED: REGADENOSON 0.4 MG/5 ML SYG ONE (12:00)
--- NOTE | 2019-03-02 13:08 | CONS ---
Assessment/Plan Assessment/Plan Hospital Course (Demo Recall) IMPRESSION: 1. Chest pain, assess for acute coronary syndrome. Negative troponin x2 at this time, somewhat atypical symptomatology for cardiology and multiple cardiac risk factors-neg trop X 3 2. Congestive heart failure, question systolic versus diastolic, likely acute per story. 3. Hypertension. 4. Dyslipidemia by history. 5. Abnormal electrocardiogram, assess for acute coronary syndrome. 6. Premature ventricular contractions, assess for acute coronary syndrome. 7. Right heel ankle pain. 8. Diabetes mellitus. 9. Leukocytosis. 10. Dizziness Recc: -Tele -Contineu BB/ACEI -Continue statin/asa -Continue imdur -Contineu lasix diuresis -Lexiscan stress test today Consultation Date/Type/Reason Admit Date/Time Feb 28, 2019 at 15:28 Initial Consult Date 02/28/19 Type of Consult Cardiology Reason for Consultation Chest pain Requesting Provider: SHEEBA CEJA MD Date/Time of Note DATE: 03/02/19 TIME: 13:01 Exam/Review of Systems Vital Signs Vitals Vital Signs Date Temp Pulse Resp B/P (MAP) Pulse Ox O2 O2 Flow FiO2 Time Delivery Rate 03/02/19 79 12:00 03/02/19 Nasal 2.0 07:53 Cannula 03/02/19 97.8 18 136/70 98 03:52 (92) Intake and Output 03/01/19 03/01/19 03/02/19 1515:00 23:00 07:00 IntakeIntake Total 750 ml 900 ml BalanceBalance 750 ml 900 ml Exam Exam Review of Systems: CONSTITUTIONAL: No fevers, chills. PULMONARY: No sob CARDIOVASCULAR: No chest pain/palpitations GASTROINTESTINAL: No nausea/vomiting. GENITOURINARY: No hematuria/dysuria. MUSCULOSKELETAL: No myagias/arthalgias. PSYCHIATRIC: The patient denies depression. NEUROLOGIC: Dizziness Constitutional: alert Psych: no complaints Head: normocephalic ENMT: mucosa pink and moist Neck: supple, jvd (9 cm water) Respiratory: clear to auscultation Cardiovascular: regular rate and rhythm Gastrointestinal: soft, non-tender Musculoskeletal: muscle tone Extremities: normal pulses Neurological: other (no focal deficits) Skin: other (no focal deficits) Labs Result Diagram: 02/28/1952002/28/19 05 Results 24hrs Laboratory Tests Test 03/01/19 16:57 03/01/19 21:09 03/02/19 07:56 Bedside Glucose 146 131 126 Medications Medications Current Medications Morphine Sulfate (morphine) 2 mg Q4H PRN IV SEVERE PAIN LEVEL 7-10 Last adminis tered on 02/28/19at 20:53; Admin Dose 2 MG; Start 02/27/19 at 19:00 Ondansetron HCl (Zofran Inj) 4 mg Q6H PRN IV NAUSEA AND/OR VOMITING; Start 02/27/19 at 19:00 Diagnostic Test (Pha) (Accu-Chek) 1 ea 02 XX ; Start 02/28/19 at 02:00 Insulin Aspart (Novolog Insulin Pen) NOVOLOG *MODERATE* ALGORITHM WITH MEALS BEDTIME SC Last administered on 03/01/19at 17:01; Admin Dose 2 UNIT; Start 02/27/19 at 21:00 Miscellaneous Information 1 ea NOTE XX ; Start 02/27/19 at 19:30 Glucose (Glutose) 15 gm Q15M PRN PO DECREASED GLUCOSE; Start 02/27/19 at 19:30 Glucose (Glutose) 22.5 gm Q15M PRN PO DECREASED GLUCOSE; Start 02/27/19 at 19:30 Dextrose (D50w Syringe) 25 ml Q15M PRN IV DECREASED GLUCOSE; Start 02/27/19 at 19:30 Dextrose (D50w Syringe) 50 ml Q15M PRN IV DECREASED GLUCOSE; Start 02/27/19 at 19:30 Glucagon (Glucagen) 1 mg Q15M PRN IM DECREASED GLUCOSE; Start 02/27/19 at 19:30 Glucose (Glutose) 15 gm Q15M PRN BUCCAL DECREASED GLUCOSE; Start 02/27/19 at 19:30 Nitroglycerin (Nitroglycerin (Sl Tab) 0.4 Mg) 1 tab Q5M PRN SL ANGINA; Start 02/28/19 at 11:30 Furosemide (Lasix) 40 mg DAILY IV Last administered on 03/01/19at 08:19; Admin Dose 40 MG; Start 02/28/19 at 11:30 Aspirin (Halfprin) 81 mg DAILY PO Last administered on 03/01/19at 08:17; Admin Dose 81 MG; Start 03/01/19 at 09:00 Isosorbide Mononitrate (Imdur) 60 mg DAILY PO Last administered on 03/01/19 08:18; Admin Dose 60 MG; Start 03/01/19 at 09:00 Lisinopril (Zestril) 40 mg DAILY PO Last administered on 03/01/19 08:17; Admin Dose 40 MG; Start 03/01/19 at 09:00 Metoprolol Succinate (Toprol Xl) 100 mg DAILY PO Last administered on 03/01/19at 08:17; Admin Dose 100 MG; Start 03/01/19 at 09:00 Atorvastatin Calcium (Lipitor) 20 mg DAILY@21 PO Last administered on 03/01/19at 21:08; Admin Dose 20 MG; Start 02/28/19 at 21:00 Senna (Senokot) 2 tab BID PO Last administered on 03/01/19at 23:37; Admin Dose 2 TAB; Start 03/01/19 at 23:30 HARPAL SIMONS Mar 02, 2019 13:08
[2019-03-02] MEDS: ASPIRIN (EC) 81 MG TAB PO SCH (13:39)
[2019-03-02] MEDS: SENNA TAB PO SCH ×2 (13:39→21:17)
[2019-03-02] MEDS: ISOSORBIDE MONONITRATE(SR)60 MG TAB PO SCH (13:42)
[2019-03-02] MEDS: LISINOPRIL 20 MG TAB PO SCH (13:42)
[2019-03-02] MEDS: METOPROLOL (XL) 100 MG TAB PO SCH (13:43)
[2019-03-02] MEDS: FUROSEMIDE 40 MG INJ IV SCH (13:43)
--- NOTE | 2019-03-02 14:15 | CONS ---
DATE OF ADMISSION: 02/28/2019 DATE OF CONSULTATION: 03/02/2019 SUBJECTIVE FINDINGS: The patient is being followed for right foot pain. DJD with involvement of tar sometatarsal and first metatarsophalangeal joint. The patient states that she has been able to ambul ate with less pain and does not want a corticosteroid injection at this time. The patient has a pend ing stress test. OBJECTIVE FINDINGS: VITAL SIGNS: Temperature 97.8, pulse 67, respiratory rate 18, blood pressure 136/70, O2 sat on 2 lit ers nasal cannula. The patient is alert, oriented. HEAD: Normocephalic, atraumatic. CARDIAC: Regular respirations. Morbidly obese. EXTREMITIES: Right foot with edema. Some tenderness with palpation. No signs of pressure sore. Ar terial studies, no significant lesion. MRI, DJD of tarsometatarsal and first MPJ. ASSESSMENT: 1. Right foot pain. 2. Right foot edema. 3. Osteoarthrosis of the tarsometatarsal joints and first metatarsophalangeal joint. 4. Chest pain. 5. Diabetes type 2. PLAN: Patient seen and evaluated. Discussed x-rays and patient states she is having less pain and w ants to schedule follow up as an outpatient. No planned procedure during this hospitalization. Furt her disposition per primary team. Dictated By: LUZ MANN/PAVAN Conf#: [id number] DID#: [id number] CC: SHEEBA CEJA MD;*EndCC*
[2019-03-02] MEDS: morphine 2 MG INJ IV PRN (14:48)
--- NOTE | 2019-03-02 16:10 | RADRPT ---
Echocardiogram Report Patient Name: ANAY CHANPatient ID: [id number] : 1950 (68y 9m)Study Date: 02/28/2019 1:23:35 PM Gender: FAccession #: [id number] Tech: Fletcher Talbert [facility] Location: [facility] Ref.Physician: HARPAL GOULD Height(Cm): BSA: Weight(Kg): Quality: AdequateOrder Physician: HARPAL GOULD Account #: Procedures: Echocardiographic Report: Transthoracic echocardiogram with complete 2D, M-Mode, and doppler examination. Indications: Congestive Heart Failure. Measurements: 2D/M Mode Doppler Measurement Value Normal Range Measurement Value Normal Range LVIDd 2D 5.3 [ 3.8 - 5.2 ] cm AV Peak Dom 1.6 [ 100.0 - 170.0 ] cm/sec LVIDs 2D 3.8 [ 2.2 - 3.5 ] cm AV Peak PG 10.0 [ 2.0 - 9.0 ] mmHg LVPWd 2D 1.2 [ 0.6 - 0.9 ] cm LVOT Peak Dom 1.0 [ 70.0 - 110.0 ] cm/sec IVSd 2D 1.2 [ 0.6 - 0.9 ] cm LVOT Peak PG 4.0 [ 2.0 - 6.0 ] mmHg AoR Diam 2D 3.0 [ 2.3 - 3.1 ] cm MV E Peak Dom 0.8 [ 60.0 - 130.0 ] cm/sec EDV 2D 136.0 [ 46.0 - 106.0 ] ml MV A Peak Dom 0.7 [ 100.0 - 120.0 ] cm/sec ESV 2D 62.3 [ 14.0 - 42.0 ] ml MV E/A 1.2 [ 0.8 - 1.5 ] ratio EF 2D 54.2 [ 54.0 - 74.0 ] percent MV Decel Time 218 [ 104 - 258 ] msec LA Dimen 2D 4.6 [ 2.7 - 3.8 ] cm Lat E` Dom 0.1 [ 10.0 - 15.0 ] cm/sec Lateral E/E` 7.8 [ 1.0 - 2.0 ] ratio MV E/A 1.2 [ 0.8 - 1.5 ] ratio TR Peak Dom 2.4 [ 100.0 - 280.0 ] cm/sec TR Peak PG 24.0 mmHg RVSP 27.0 [ 10.0 - 36.0 ] mmHg Findings: Left Ventricle: Lower limits of normal systolic function. Normal left ventricular cavity size. Left ventricular wall thickness upper limits of normal. Ejection fraction is visually estimated at 50-55 %. Tissue Doppler/Mitral Doppler indices are consistent with pseudonormalization with mildly elevated left atrial pressure (Stage II diastolic dysfunction). Right Ventricle: Normal right ventricular size. Normal right ventricular systolic function. Left Atrium: There is mild enlargement of left atrium. Right Atrium: The right atrium is normal in size. Mitral Valve: Mild mitral leaflet calcification. Mild mitral annular calcification. Trace mitral regurgitation. Aortic Valve: No significant aortic stenosis or insufficiency. Aortic cusps appear mildly calcified. Tricuspid Valve: Normal appearance of the tricuspid valve. The estimated Peak RVSP is 27 mmHg. There is mild tricuspid regurgitation. Pericardium: Normal pericardium with no significant pericardial effusion. Aorta: Normal aortic root. IVC: Normal size and normal respiratory collapse consistent with normal right atrial pressure. Conclusions: Lower limits of normal systolic function. Normal left ventricular cavity size. Left ventricular wall thickness upper limits of normal. Ejection fraction is visually estimated at 50-55 %. Tissue Doppler/Mitral Doppler indices are consistent with pseudonormalization with mildly elevated left atrial pressure (Stage II diastolic dysfunction). There is mild enlargement of left atrium. Mild mitral leaflet calcification. Mild mitral annular calcification. Trace mitral regurgitation. Normal appearance of the tricuspid valve. The estimated Peak RVSP is 27 mmHg. There is mild tricuspid regurgitation. Electronically Signed By: Harpal Gould 2019-03-02 16:09:13 PDT
--- NOTE | 2019-03-02 18:13 | PN ---
Date/Time of Note Date/Time of Note DATE: 03/02/19 TIME: 18:09 Assessment/Plan VTE Prophylaxis Risk score (from Nsg)>0 risk: 7 SCD applied (from Nsg): Yes Pharmacological prophylaxis: other Lines/Catheters IV Catheter Type (from Nrsg): Saline Lock Assessment/Plan Hospital Course Patient is status post stress test today, tolerated procedure well patient currently sitting in chair eating dinner, denies chest pain, complains of r foot pain, able to walk with assist. Assessment/Plan -Chest pain, rule out acute coronary syndrome, cardiac enzymes are neg x 3. Dr. Gould is following in cardiology consultation. -Acute on chronic diastolic dysfunction CHF with preserved EF 55% -Intractable right foot pain swelling and inability to walk. Osteoarthrosis of tarsometatarsal joints of the right foot and first metatarsophalangeal joint. podiatry consult . -Diabetes mellitus type 2 -HTN -Morbid obesity with BMI of 46.1 Further recommendations based on clinical course. Plan of care discussed with Dr. De La Paz. Result Diagram: 02/28/1952002/28/1921 Results 24hrs Laboratory Tests Test 03/01/19 21:09 03/02/19 07:56 03/02/19 13:47 03/02/19 17:21 Bedside Glucose 131 126 128 142 Exam/Review of Systems Exam Vitals Vital Signs Date Temp Pulse Resp B/P (MAP) Pulse Ox O2 O2 Flow FiO2 Time Delivery Rate 03/02/19 96.8 68 22 138/72 96 Room Air 16:20 (94) 03/02/19 2.0 07:53 Intake and Output 03/01/19 03/01/19 03/02/19 1515:00 23:00 07:00 IntakeIntake Total 750 ml 900 ml BalanceBalance 750 ml 900 ml Exam Constitutional: alert, oriented Respiratory: clear to auscultation Cardiovascular: regular rate and rhythm Gastrointestinal: soft, non-tender Musculoskeletal: nl extremities to inspection Extremities: normal pulses, other Results Results 24hrs Laboratory Tests Test 03/01/19 21:09 03/02/19 07:56 03/02/19 13:47 03/02/19 17:21 Bedside Glucose 131 126 128 142 Medications Medication Current Medications Morphine Sulfate (morphine) 2 mg Q4H PRN IV SEVERE PAIN LEVEL 7-10 Last administered on 03/02/19 14:48; Admin Dose 2 MG; Start 02/27/19 at 19:00 Ondansetron HCl (Zofran Inj) 4 mg Q6H PRN IV NAUSEA AND/OR VOMITING; Start 02/27/19 at 19:00 Diagnostic Test (Pha) (Accu-Chek) 1 ea 02 XX ; Start 02/28/19 at 02:00 Insulin Aspart (Novolog Insulin Pen) NOVOLOG *MODERATE* ALGORITHM WITH MEALS BEDTIME SC Last administered on 03/02/19 17:42; Admin Dose 2 UNIT; Start 02/27/19 at 21:00 Miscellaneous Information 1 ea NOTE XX ; Start 02/27/19 at 19:30 Glucose (Glutose) 15 gm Q15M PRN PO DECREASED GLUCOSE; Start 02/27/19 at 19:30 Glucose (Glutose) 22.5 gm Q15M PRN PO DECREASED GLUCOSE; Start 02/27/19 at 19:30 Dextrose (D50w Syringe) 25 ml Q15M PRN IV DECREASED GLUCOSE; Start 02/27/19 at 19:30 Dextrose (D50w Syringe) 50 ml Q15M PRN IV DECREASED GLUCOSE; Start 02/27/19 at 19:30 Glucagon (Glucagen) 1 mg Q15M PRN IM DECREASED GLUCOSE; Start 02/27/19 at 19:30 Glucose (Glutose) 15 gm Q15M PRN BUCCAL DECREASED GLUCOSE; Start 02/27/19 at 19:30 Nitroglycerin (Nitroglycerin (Sl Tab) 0.4 Mg) 1 tab Q5M PRN SL ANGINA; Start 02/28/19 at 11:30 Furosemide (Lasix) 40 mg DAILY IV Last administered on 03/02/19at 13:43; Admin Dose 40 MG; Start 02/28/19 at 11:30 Aspirin (Halfprin) 81 mg DAILY PO Last administered on 03/02/19 13:39; Admin Dose 81 MG; Start 03/01/19 at 09:00 Isosorbide Mononitrate (Imdur) 60 mg DAILY PO Last administered on 03/02/19 13:42; Admin Dose 60 MG; Start 03/01/19 at 09:00 Lisinopril (Zestril) 40 mg DAILY PO Last administered on 6/5/19at 13:42; Admin Dose 40 MG; Start 03/01/19 at 09:00 Metoprolol Succinate (Toprol Xl) 100 mg DAILY PO Last administered on 03/02/19at 13:43; Admin Dose 100 MG; Start 03/01/19 at 09:00 Atorvastatin Calcium (Lipitor) 20 mg DAILY@21 PO Last administered on 03/01/19at 21:08; Admin Dose 20 MG; Start 02/28/19 at 21:00 Senna (Senokot) 2 tab BID PO Last administered on 03/02/19at 13:39; Admin Dose 2 TAB; Start 03/01/19 at 23:30 REBECCA CASTELLANO Mar 02, 2019 18:13
--- NOTE | 2019-03-02 19:48 | CARRPT ---
DATE OF PROCEDURE: 03/02/2019 REASON FOR STRESS TESTING: Chest pain, electrocardiogram, assess for ischemia. BASELINE VITAL SIGNS AND ELECTROCARDIOGRAM: Pulse 75, blood pressure 146/79. Electrocardiogram reve als sinus rhythm and a rate of 76 with normal axis, normal intervals, frequent PVCs, nonspecific ST a bnormalities. PROCEDURE: The patient underwent standard Lexiscan infusion protocol over 10 seconds followed by rad iolabeled tracer. The patient's test was stopped due to completion of protocol. Maximal achieved bl ood pressure during the test was 136/62. Maximum heart rate during the test was 108. ELECTROCARDIOGRAM FINDINGS: The patient did not develop any new Lexiscan-induced ST or T-wave change s from baseline abnormalities. He did have frequent PVCs. SYMPTOMS: The patient had mild shortness breath during stress test that resolved in recovery. No ch est pain. IMPRESSION: 1. No Lexiscan-induced ST or T-wave changes from baseline abnormalities that are diagnostic for isch emia. 2. Complaints of shortness of breath during stress testing resolved in recovery. 3. No documented chest pain during stress testing. 4. Frequent premature ventricular contractions during stress test. 5. Report of nuclear images to follow in separate dictation. Dictated By: HARPAL REAL/PAVAN Conf#: [id number] DID#: [id number] CC: SHEEBA CEJA MD;*EndCC*
[2019-03-02] MEDS: ATORVASTATIN 20 MG TAB PO SCH (21:16)
[2019-03-03] VITALS (9 sets, daily range): BP systolic 96–149; BP diastolic 53–78; PULSE 61–81; RESP 18
[2019-03-03] MEDS: ACCU-CHEK XX SCH (02:00)
[2019-03-03] MEDS: INSULIN ASPART [NOVOLOG] 3 ML PEN SC SCH ×4 (08:00→20:58)
[2019-03-03] MEDS: ASPIRIN (EC) 81 MG TAB PO SCH (08:22)
[2019-03-03] MEDS: SENNA TAB PO SCH ×2 (08:22→20:57)
[2019-03-03] MEDS: METOPROLOL (XL) 100 MG TAB PO SCH (08:22)
[2019-03-03] MEDS: ISOSORBIDE MONONITRATE(SR)60 MG TAB PO SCH (08:22)
[2019-03-03] MEDS: LISINOPRIL 20 MG TAB PO SCH (08:22)
[2019-03-03] MEDS: FUROSEMIDE 40 MG INJ IV SCH (08:23)
[2019-03-03] MEDS: morphine 2 MG INJ IV PRN (10:33)
--- NOTE | 2019-03-03 13:05 | CONS ---
Assessment/Plan Assessment/Plan Hospital Course (Demo Recall) IMPRESSION: 1. Chest pain, assess for acute coronary syndrome. Negative troponin x2 at this time, somewhat atypical symptomatology for cardiology and multiple cardiac risk factors-neg trop X 3. Lexiscan with no ischemia/EF 54% 2. Congestive heart failure, question systolic versus diastolic, likely acute per story. 3. Hypertension. 4. Dyslipidemia by history. 5. Abnormal electrocardiogram, assess for acute coronary syndrome. 6. Premature ventricular contractions, assess for acute coronary syndrome. 7. Right heel ankle pain.-MRI negative for osteop/arterial JACQUELYN without sig PAD 8. Diabetes mellitus. 9. Leukocytosis. 10. Dizziness Recc: -Tele -Contineu BB/ACEI -Continue statin/asa -Continue imdur -Contineu lasix diuresis -check baseline BMP Consultation Date/Type/Reason Admit Date/Time Feb 28, 2019 at 15:28 Initial Consult Date 02/28/19 Type of Consult Cardiology Reason for Consultation chest pain Requesting Provider: SHEEBA CEJA MD Date/Time of Note DATE: 03/03/19 TIME: 13:03 Exam/Review of Systems Vital Signs Vitals Vital Signs Date Temp Pulse Resp B/P (MAP) Pulse Ox O2 O2 Flow FiO2 Time Delivery Rate 03/03/19 98.9 74 18 96/53 (67) 95 11:06 03/03/19 Nasal 08:18 Cannula 03/03/19 2.0 07:56 Intake and Output 03/02/19 03/02/19 03/03/19 1515:00 23:00 07:00 IntakeIntake Total 530 ml 610 ml BalanceBalance 530 ml 610 ml Exam Exam Review of Systems: CONSTITUTIONAL: No fevers, chills. PULMONARY: No sob CARDIOVASCULAR: No chest pain/palpitations GASTROINTESTINAL: No nausea/vomiting. GENITOURINARY: No hematuria/dysuria. MUSCULOSKELETAL: pain in foot PSYCHIATRIC: The patient denies depression. NEUROLOGIC: No weakness Constitutional: alert Psych: no complaints Head: normocephalic ENMT: mucosa pink and moist Neck: supple, jvd (9 cm water) Respiratory: diminished breath sounds (at bases/B) Cardiovascular: regular rate and rhythm Gastrointestinal: soft, non-tender Musculoskeletal: muscle tone (normal) Extremities: edema (none) Neurological: other (NO focal deficits) Labs Result Diagram: 02/28/19 0521 02/28/19 0521 Results 24hrs Laboratory Tests Test 03/02/19 13:47 03/02/19 17:21 03/02/19 21:14 03/03/19 08:10 Bedside Glucose 128 142 147 116 Test 03/03/19 11:33 Bedside Glucose 153 Medications Medications Current Medications Morphine Sulfate (morphine) 2 mg Q4H PRN IV SEVERE PAIN LEVEL 7-10 Last administered on 03/03/19at 10:33; Admin Dose 2 MG; Start 02/27/19 at 19:00 Ondansetron HCl (Zofran Inj) 4 mg Q6H PRN IV NAUSEA AND/OR VOMITING; Start 02/27/19 at 19:00 Diagnostic Test (Pha) (Accu-Chek) 1 ea 02 XX ; Start 02/28/19 at 02:00 Insulin Aspart (Novolog Insulin Pen) NOVOLOG *MODERATE* ALGORITHM WITH MEALS BEDTIME SC Last administered on 03/03/19at 11:39; Admin Dose 2 UNIT; Start at 21:00 Miscellaneous Information 1 ea NOTE XX ; Start 02/27/19 at 19:30 Glucose (Glutose) 15 gm Q15M PRN PO DECREASED GLUCOSE; Start 02/27/19 at 19:30 Glucose (Glutose) 22.5 gm Q15M PRN PO DECREASED GLUCOSE; Start 02/27/19 at 19:30 Dextrose (D50w Syringe) 25 ml Q15M PRN IV DECREASED GLUCOSE; Start 02/27/19 at 19:30 Dextrose (D50w Syringe) 50 ml Q15M PRN IV DECREASED GLUCOSE; Start 02/27/19 at 19:30 Glucagon (Glucagen) 1 mg Q15M PRN IM DECREASED GLUCOSE; Start 02/27/19 at 19:30 Glucose (Glutose) 15 gm Q15M PRN BUCCAL DECREASED GLUCOSE; Start 02/27/19 at 19:30 Nitroglycerin (Nitroglycerin (Sl Tab) 0.4 Mg) 1 tab Q5M PRN SL ANGINA; Start 02/28/19 at 11:30 Furosemide (Lasix) 40 mg DAILY IV Last administered on 03/03/19at 08:23; Admin Dose 40 MG; Start 02/28/19 at 11:30 Aspirin (Halfprin) 81 mg DAILY PO Last administered on 03/03/19at 08:22; Admin Dose 81 MG; Start 03/01/19 at 09:00 Isosorbide Mononitrate (Imdur) 60 mg DAILY PO Last administered on 03/03/19 08:22; Admin Dose 60 MG; Start 03/01/19 at 09:00 Lisinopril (Zestril) 40 mg DAILY PO Last administered on 03/03/19 08:22; Admin Dose 40 MG; Start 03/01/19 at 09:00 Metoprolol Succinate (Toprol Xl) 100 mg DAILY PO Last administered on 03/03/19 08:22; Admin Dose 100 MG; Start 03/01/19 at 09:00 Atorvastatin Calcium (Lipitor) 20 mg DAILY@21 PO Last administered on 03/02/19 21:16; Admin Dose 20 MG; Start 02/28/19 at 21:00 Senna (Senokot) 2 tab BID PO Last administered on 03/03/19 08:22; Admin Dose 2 TAB; Start 03/01/19 at 23:30 HARPAL SIMONS Mar 03, 2019 13:05
[2019-03-03] MEDS ORDERED: ALBUTEROL/IPRATROPIUM (NEB) 3 ML AMP HHN PRN (19:30)
--- NOTE | 2019-03-03 19:44 | PN ---
Date/Time of Note Date/Time of Note DATE: 03/03/19 TIME: 19:38 Assessment/Plan VTE Prophylaxis Risk score (from Ns)>0 risk: 7 SCD applied (from Nsg): Yes Pharmacological prophylaxis: other Lines/Catheters IV Catheter Type (from Nrs): Saline Lock Assessment/Plan Hospital Course Patient complains of intermittent shortness of breath, denies any chest pain, continue Lasix, monitor electrolytes. Continue breathing treatment as needed for shortness of breath. Patient complaint of right foot pain. PT eval. Assessment/Plan -Chest pain, rule out acute coronary syndrome, cardiac enzymes are neg x 3. Lexiscan with no ischemia/EF 54%. Dr. Gould is following in cardiology consultation. -Acute on chronic diastolic dysfunction CHF with preserved EF 55%. Continue Lasix monitor electrolytes. -Intractable right foot pain swelling and inability to walk. Osteoarthrosis of tarsometatarsal joints of the right foot and first metatarsophalangeal joint. podiatry consult . -Diabetes mellitus type 2 -HTN -Morbid obesity with BMI of 46.1 Further recommendations based on clinical course. Plan of care discussed with Dr. De La Paz. Result Diagram: 02/28/19 0521 02/28/19 0521 Results 24hrs Laboratory Tests Test 03/02/19 21:14 03/03/19 08:10 03/03/19 11:33 03/03/19 17:10 Bedside Glucose 147 116 153 97 Exam/Review of Systems Exam Vitals Vital Signs Date Temp Pulse Resp B/P (MAP) Pulse Ox O2 O2 Flow FiO2 Time Delivery Rate 03/03/19 70 16:01 03/03/19 98.0 18 118/61 98 15:57 (80) 03/03/19 Nasal 08:18 Cannula 03/03/19 2.0 07:56 Intake and Output 03/02/19 03/02/19 03/03/19 1515:00 23:00 07:00 IntakeIntake Total 530 ml 610 ml BalanceBalance 530 ml 610 ml Exam Constitutional: alert, oriented Respiratory: clear to auscultation Cardiovascular: regular rate and rhythm Gastrointestinal: soft, non-tender Musculoskeletal: nl extremities to inspection Extremities: normal pulses, other Results Results 24hrs Laboratory Tests Test 03/02/19 21:14 03/03/19 08:10 03/03/19 11:33 03/03/19 17:10 Bedside Glucose 147 116 153 97 Medications Medication Current Medications Morphine Sulfate (morphine) 2 mg Q4H PRN IV SEVERE PAIN LEVEL 7-10 Last admini stered on 03/03/19at 10:33; Admin Dose 2 MG; Start 02/27/19 at 19:00 Ondansetron HCl (Zofran Inj) 4 mg Q6H PRN IV NAUSEA AND/OR VOMITING; Start 02/27/19 at 19:00 Diagnostic Test (Pha) (Accu-Chek) 1 ea 02 XX ; Start 02/28/19 at 02:00 Insulin Aspart (Novolog Insulin Pen) NOVOLOG *MODERATE* ALGORITHM WITH MEALS BEDTIME SC Last administered on 03/03/19 11:39; Admin Dose 2 UNIT; Start 02/27/19 at 21:00 Miscellaneous Information 1 ea NOTE XX ; Start 02/27/19 at 19:30 Glucose (Glutose) 15 gm Q15M PRN PO DECREASED GLUCOSE; Start 02/27/19 at 19:30 Glucose (Glutose) 22.5 gm Q15M PRN PO DECREASED GLUCOSE; Start 02/27/19 at 19:30 Dextrose (D50w Syringe) 25 ml Q15M PRN IV DECREASED GLUCOSE; Start 02/27/19 at 19:30 Dextrose (D50w Syringe) 50 ml Q15M PRN IV DECREASED GLUCOSE; Start 02/27/19 at 19:30 Glucagon (Glucagen) 1 mg Q15M PRN IM DECREASED GLUCOSE; Start 02/27/19 at 19:30 Glucose (Glutose) 15 gm Q15M PRN BUCCAL DECREASED GLUCOSE; Start 02/27/19 at 19:30 Nitroglycerin (Nitroglycerin (Sl Tab) 0.4 Mg) 1 tab Q5M PRN SL ANGINA; Start 02/28/19 at 11:30 Furosemide (Lasix) 40 mg DAILY IV Last administered on 03/03/19 08:23; Admin Dose 40 MG; Start 02/28/19 at 11:30 Aspirin (Halfprin) 81 mg DAILY PO Last administered on 03/03/19 08:22; Admin Dose 81 MG; Start 03/01/19 at 09:00 Isosorbide Mononitrate (Imdur) 60 mg DAILY PO Last administered on 03/03/19 08:22; Admin Dose 60 MG; Start 03/01/19 at 09:00 Lisinopril (Zestril) 40 mg DAILY PO Last administered on 03/03/19 08:22; Admin Dose 40 MG; Start 03/01/19 at 09:00 Metoprolol Succinate (Toprol Xl) 100 mg DAILY PO Last administered on 03/03/19 08:22; Admin Dose 100 MG; Start 03/01/19 at 09:00 Atorvastatin Calcium (Lipitor) 20 mg DAILY@21 PO Last administered on 03/02/19at 21:16; Admin Dose 20 MG; Start 02/28/19 at 21:00 Senna (Senokot) 2 tab BID PO Last administered on 03/03/19 08:22; Admin Dose 2 TAB; Start 03/01/19 at 23:30 Albuterol/ Ipratropium (Duoneb) 3 ml Q4H RESP THERAPY PRN HHN SHORTNESS OF BREATH; Start 03/03/19 at 19:30 REBECCA CASTELLANO Mar 03, 2019 19:44
[2019-03-03] MEDS: ATORVASTATIN 20 MG TAB PO SCH (20:57)
[2019-03-04] VITALS (9 sets, daily range): BP systolic 122–145; BP diastolic 66–92; PULSE 65–86; RESP 18–20
[2019-03-04] MEDS: ACCU-CHEK XX SCH (02:00)
--- NOTE | 2019-03-04 04:49 | PN ---
Date/Time of Note Date/Time of Note DATE: 03/04/19 TIME: 04:48 Assessment/Plan VTE Prophylaxis Risk score (from Ns)>0 risk: 7 SCD applied (from [place]): Yes SCD contraindicated: other Pharmacological prophylaxis: other Pharm contraindication: other Lines/Catheters IV [facility] ([facility] Saline Lock Assessment/Plan Assessment/Plan -Chest pain, rule out acute coronary syndrome, cardiac enzymes are neg x 3. Lexiscan with no ischemia/EF 54%. -Dr. Gould is following in cardiology consultation. -Acute on chronic diastolic dysfunction CHF with preserved EF 55%. Continue Lasix monitor electrolytes. -Intractable right foot pain swelling and inability to walk. Osteoarthrosis of tarsometatarsal joints of the right foot and first metatarsophalangeal joint. - -podiatry consult . -Diabetes mellitus type 2 -HTN -Morbid obesity with BMI of 46.1 -weight management Further recommendations based on clinical course. Plan of care discussed with Dr. De La Paz. Result Diagram: 02/28/1952002/28/19 0521 Results 24hrs Laboratory Tests Test 03/03/19 08:10 03/03/19 11:33 03/03/19 17:10 03/03/19 20:56 Bedside Glucose 116 153 97 126 Subjective 24 Hr Interval Summary Eyes: no complaints ENT: no complaints Respiratory: no complaints Cardiovascular: no complaints Gastrointestinal: no complaints Genitourinary: no complaints Musculoskeletal: bone/joint pain, restricted range of motion Skin: no complaints Neurologic: no complaints Endocrine: no complaints Lymphatic: no complaints Psychological: nl mood/affect Exam/Review of Systems Exam Vitals Vital Signs Date Temp Pulse Resp B/P (MAP) Pulse Ox O2 O2 Flow FiO2 Time Delivery Rate 03/04/19 98.1 70 19 139/76 97 04:00 (97) 03/03/19 Nasal 2.0 20:00 Cannula Constitutional: alert, well developed, obese Psych: nl mood/affect Head: normocephalic Eyes: nl lids, nl sclera ENMT: nl external ears & nose Neck: non-tender Respiratory: clear to auscultation Cardiovascular: nl pulses, other (s1s2) Gastrointestinal: soft, non-tender Musculoskeletal: joint tenderness, range of motion Extremities: edema Neurological: other (alert/reponsive) Results Results 24hrs Laboratory Tests Test 03/03/19 08:10 03/03/19 11:33 03/03/19 17:10 03/03/19 20:56 Bedside Glucose 116 153 97 126 Medications Medication Current Medications Morphine Sulfate (morphine) 2 mg Q4H PRN IV SEVERE PAIN LEVEL 7-10 Last administered on 03/03/19 10:33; Admin Dose 2 MG; Start 02/27/19 at 19:00 Ondansetron HCl (Zofran Inj) 4 mg Q6H PRN IV NAUSEA AND/OR VOMITING; Start 02/27/19 at 19:00 Diagnostic Test (Pha) (Accu-Chek) 1 ea 02 XX ; Start 02/28/19 at 02:00 Insulin Aspart (Novolog Insulin Pen) NOVOLOG *MODERATE* ALGORITHM WITH MEALS BEDTIME SC Last administered on 03/03/19at 11:39; Admin Dose 2 UNIT; Start 02/27/19 at 21:00 Miscellaneous Information 1 ea NOTE XX ; Start 02/27/19 at 19:30 Glucose (Glutose) 15 gm Q15M PRN PO DECREASED GLUCOSE; Start 02/27/19 at 19:30 Glucose (Glutose) 22.5 gm Q15M PRN PO DECREASED GLUCOSE; Start 02/27/19 at 19:30 Dextrose (D50w Syringe) 25 ml Q15M PRN IV DECREASED GLUCOSE; Start 02/27/19 at 19:30 Dextrose (D50w Syringe) 50 ml Q15M PRN IV DECREASED GLUCOSE; Start 02/27/19 at 19:30 Glucagon (Glucagen) 1 mg Q15M PRN IM DECREASED GLUCOSE; Start 02/27/19 at 19:30 Glucose (Glutose) 15 gm Q15M PRN BUCCAL DECREASED GLUCOSE; Start 02/27/19 at 19:30 Nitroglycerin (Nitroglycerin (Sl Tab) 0.4 Mg) 1 tab Q5M PRN SL ANGINA; Start 02/28/19 at 11:30 Furosemide (Lasix) 40 mg DAILY IV Last administered on 03/03/19at 08:23; Admin Dose 40 MG; Start 02/28/19 at 11:30 Aspirin (Halfprin) 81 mg DAILY PO Last administered on 03/03/19at 08:22; Admin Dose 81 MG; Start 03/01/19 at 09:00 Isosorbide Mononitrate (Imdur) 60 mg DAILY PO Last administered on 03/03/19 08:22; Admin Dose 60 MG; Start 03/01/19 at 09:00 Lisinopril (Zestril) 40 mg DAILY PO Last administered on 03/03/19 08:22; Admin Dose 40 MG; Start 03/01/19 at 09:00 Metoprolol Succinate (Toprol Xl) 100 mg DAILY PO Last administered on 03/03/19 08:22; Admin Dose 100 MG; Start 03/01/19 at 09:00 Atorvastatin Calcium (Lipitor) 20 mg DAILY@21 PO Last administered on 03/03/19 20:57; Admin Dose 20 MG; Start 02/28/19 at 21:00 Senna (Senokot) 2 tab BID PO Last administered on 03/03/19 20:57; Admin Dose 2 TAB; Start 03/01/19 at 23:30 Albuterol/ Ipratropium (Duoneb) 3 ml Q4H RESP THERAPY PRN HHN SHORTNESS OF BREATH; Start 03/03/19 at 19:30 DEON PATTERSON Mar 04, 2019 04:49
[2019-03-04] MEDS: morphine 2 MG INJ IV PRN (07:48)
[2019-03-04] MEDS: INSULIN ASPART [NOVOLOG] 3 ML PEN SC SCH ×4 (08:00→20:53)
[2019-03-04] MEDS: ASPIRIN (EC) 81 MG TAB PO SCH (08:47)
[2019-03-04] MEDS: METOPROLOL (XL) 100 MG TAB PO SCH (08:48)
[2019-03-04] MEDS: LISINOPRIL 20 MG TAB PO SCH (08:49)
[2019-03-04] MEDS: FUROSEMIDE 40 MG INJ IV SCH ×2 (08:49→17:13)
[2019-03-04] MEDS: SENNA TAB PO SCH ×2 (08:49→20:31)
[2019-03-04] MEDS: ISOSORBIDE MONONITRATE(SR)60 MG TAB PO SCH (08:49)
[2019-03-04] MEDS ORDERED: KETOROLAC 60 MG INJ IV STA (11:14)
[2019-03-04] MEDS ORDERED: KETOROLAC 30 MG INJ IV ONE (11:30)
--- NOTE | 2019-03-04 14:54 | CONS ---
Assessment/Plan Assessment/Plan Hospital Course (Demo Recall) IMPRESSION: 1. Chest pain, assess for acute coronary syndrome. Negative troponin x2 at this time, somewhat atypical symptomatology for cardiology and multiple cardiac risk factors-neg trop 3, Lexiscan with no ischemia/EF 54% 2. Congestive heart failure, question systolic versus diastolic, likely acute per story. 3. Hypertension. 4. Dyslipidemia by history. 5. Abnormal electrocardiogram, assess for acute coronary syndrome. 6. Premature ventricular contractions, assess for acute coronary syndrome. 7. Right heel ankle pain.-MRI negative for osteop/arterial JACQUELYN without sig PAD 8. Diabetes mellitus. 9. Leukocytosis. 10. Dizziness Recc: -Tele -Contineu BB/ACEI -Continue statin/asa -Continue imdur -Contineu lasix diuresis with slight increase Consultation Date/Type/Reason Admit Date/Time Feb 28, 2019 at 15:28 Initial Consult Date 02/28/19 Type of Consult Cardiology Reason for Consultation CP/CHF Requesting Provider: SHEEBA CEJA MD Date/Time of Note DATE: 03/04/19 TIME: 14:52 Exam/Review of Systems Vital Signs Vitals Vital Signs Date Temp Pulse Resp B/P (MAP) Pulse Ox O2 O2 Flow FiO2 Time Delivery Rate 03/04/19 93 Room Air 14:50 03/04/19 97.7 20 127/66 11:29 (86) 03/04/19 2.0 08:38 03/04/19 68 08:00 Intake and Output 03/03/19 03/03/19 03/04/19 1515:00 23:00 07:00 IntakeIntake Total 250 ml BalanceBalance 250 ml Exam Exam Review of Systems: CONSTITUTIONAL: No fevers, chills. PULMONARY: No sob CARDIOVASCULAR: No chest pain/palpitations GASTROINTESTINAL: No nausea/vomiting. GENITOURINARY: No hematuria/dysuria. MUSCULOSKELETAL: No myagias/arthalgias. PSYCHIATRIC: The patient denies depression. NEUROLOGIC: No weakness Constitutional: alert, oriented Psych: no complaints Head: normocephalic ENMT: mucosa pink and moist Neck: supple, jvd (9 cm water) Respiratory: diminished breath sounds (at bases/B) Cardiovascular: regular rate and rhythm Gastrointestinal: soft, non-tender Musculoskeletal: muscle tone (normal) Extremities: edema (trac e/B) Labs Result Diagram: 03/04/19 0601 03/04/19 0916 Results 24hrs Laboratory Tests Test 03/03/19 17:10 03/03/19 20:56 03/04/19 06:01 03/04/19 08:32 Bedside Glucose 97 126 137 White Blood Count 9.6 Red Blood Count 4.48 Hemoglobin 14.5 Hematocrit 44.3 Mean Corpuscular Volume 98.9 Mean Corpuscular 32.4 Hemoglobin Mean Corpuscular 32.7 Hemoglobin Concent Red Cell Distribution 12.7 Width Platelet Count 223 Mean Platelet Volume 10.7 H Immature Granulocytes % 0.300 Neutrophils % 64.9 Lymphocytes % 20.5 Monocytes % 10.7 Eosinophils % 3.1 Basophils % 0.5 Nucleated Red Blood 0.0 Cells % Immature Granulocytes # 0.030 Neutrophils # 6.2 Lymphocytes # 2.0 Monocytes # 1.0 H Eosinophils # 0.3 Basophils # 0.1 Nucleated Red Blood 0.0 Cells # Sodium Level 140 Potassium Level 4.4 Chloride Level 98 Carbon Dioxide Level 38 H Anion Gap 4 L Blood Urea Nitrogen 19 Creatinine 0.73 Est Glomerular Filtrat > 60 Rate mL/min Glucose Level 132 Calcium Level 9.7 Test 03/04/19 09:16 03/04/19 12:19 Sodium Level 140 Potassium Level 4.1 Chloride Level 97 Carbon Dioxide Level 34 H Anion Gap 9 # Blood Urea Nitrogen 18 Creatinine 0.62 Est Glomerular Filtrat > 60 Rate mL/min Glucose Level 173 Uric Acid 9.2 H Calcium Level 9.7 Bedside Glucose 202 Medications Medications Current Medications Morphine Sulfate (morphine) 2 mg Q4H PRN IV SEVERE PAIN LEVEL 7-10 Last administered on 03/04/19at 07:48; Admin Dose 2 MG; Start 02/27/19 at 19:00 Ondansetron HCl (Zofran Inj) 4 mg Q6H PRN IV NAUSEA AND/OR VOMITING; Start 02/27/19 at 19:00 Diagnostic Test (Pha) (Accu-Chek) 1 ea 02 XX ; Start 02/28/19 at 02:00 Insulin Aspart (Novolog Insulin Pen) NOVOLOG *MODERATE* ALGORITHM WITH MEALS BEDTIME SC Last administered on 03/04/19at 12:51; Admin Dose 4 UNIT; Start 02/27/19 at 21:00 Miscellaneous Information 1 ea NOTE XX ; Start 02/27/19 at 19:30 Glucose (Glutose) 15 gm Q15M PRN PO DECREASED GLUCOSE; Start 02/27/19 at 19:30 Glucose (Glutose) 22.5 gm Q15M PRN PO DECREASED GLUCOSE; Start 02/27/19 at 19:30 Dextrose (D50w Syringe) 25 ml Q15M PRN IV DECREASED GLUCOSE; Start 02/27/19 at 1 9:30 Dextrose (D50w Syringe) 50 ml Q15M PRN IV DECREASED GLUCOSE; Start 02/27/19 at 19:30 Glucagon (Glucagen) 1 mg Q15M PRN IM DECREASED GLUCOSE; Start 02/27/19 at 19:30 Glucose (Glutose) 15 gm Q15M PRN BUCCAL DECREASED GLUCOSE; Start 02/27/19 at 19:30 Nitroglycerin (Nitroglycerin (Sl Tab) 0.4 Mg) 1 tab Q5M PRN SL ANGINA; Start 02/28/19 at 11:30 Furosemide (Lasix) 40 mg DAILY IV Last administered on 03/04/19 08:49; Admin Dose 40 MG; Start 02/28/19 at 11:30 Aspirin (Halfprin) 81 mg DAILY PO Last administered on 03/04/19 08:47; Admin Dose 81 MG; Start 03/01/19 at 09:00 Isosorbide Mononitrate (Imdur) 60 mg DAILY PO Last administered on 03/04/19 08:49; Admin Dose 60 MG; Start 03/01/19 at 09:00 Lisinopril (Zestril) 40 mg DAILY PO Last administered on 03/04/19 08:49; Admin Dose 40 MG; Start 03/01/19 at 09:00 Metoprolol Succinate (Toprol Xl) 100 mg DAILY PO Last administered on 03/04/19 08:48; Admin Dose 100 MG; Start 03/01/19 at 09:00 Atorvastatin Calcium (Lipitor) 20 mg DAILY@21 PO Last administered on 03/03/19 20:57; Admin Dose 20 MG; Start 02/28/19 at 21:00 Senna (Senokot) 2 tab BID PO Last administered on 03/03/19 20:57; Admin Dose 2 TAB; Start 03/01/19 at 23:30 Albuterol/ Ipratropium (Duoneb) 3 ml Q4H RESP THERAPY PRN HHN SHORTNESS OF BREATH; Start 03/03/19 at 19:30 HARPAL SIMONS Mar 04, 2019 14:54
[2019-03-04] MEDS ORDERED: KETOROLAC 30 MG INJ IV PRN (17:30)
[2019-03-04] MEDS: ATORVASTATIN 20 MG TAB PO SCH (20:31)
[2019-03-04] MEDS: METHYLPREDNISOLONE 40 MG INJ IV SCH (20:32)
[2019-03-05] VITALS (10 sets, daily range): BP systolic 118–164; BP diastolic 63–81; PULSE 50–81; RESP 17–20
[2019-03-05] MEDS: ACCU-CHEK XX SCH (02:00)
[2019-03-05] MEDS: FUROSEMIDE 40 MG INJ IV SCH ×2 (06:10→17:22)
[2019-03-05] MEDS: INSULIN ASPART [NOVOLOG] 3 ML PEN SC SCH ×4 (07:55→20:45)
[2019-03-05] MEDS: ASPIRIN (EC) 81 MG TAB PO SCH (08:09)
[2019-03-05] MEDS: SENNA TAB PO SCH ×2 (08:10→20:13)
[2019-03-05] MEDS: METOPROLOL (XL) 100 MG TAB PO SCH (08:10)
[2019-03-05] MEDS: LISINOPRIL 20 MG TAB PO SCH (08:11)
[2019-03-05] MEDS: ISOSORBIDE MONONITRATE(SR)60 MG TAB PO SCH (08:11)
[2019-03-05] MEDS: METHYLPREDNISOLONE 40 MG INJ IV SCH ×2 (08:12→20:13)
--- NOTE | 2019-03-05 11:10 | PN ---
Date/Time of Note Date/Time of Note DATE: 03/05/19 TIME: 11:10 Assessment/Plan VTE Prophylaxis Risk score (from [facility])>0 risk: 6 [place] [facility] [place] contraindicated: other Pharmacological prophylaxis: other Pharm contraindication: other Lines/Catheters [facility] C[facility]ter Type (from [facility] Saline Lock Assessment/Plan Assessment/Plan - Hyperuricemia- -Chest pain- none at present -cardiac enzymes are neg x 3. Lexiscan with no ischemia/EF 54%. -Dr. Gould is following in cardiology consultation. -Acute on chronic diastolic dysfunction CHF with preserved EF 55%. Continue Lasix monitor electrolytes. -Intractable right foot pain swelling and inability to walk. Osteoarthrosis of tarsometatarsal joints of the right foot and first metatarsophalangeal joint. - -podiatry consult .- staff to notify podiatary -Diabetes mellitus type -HTN -Morbid obesity with BMI of 46.1 -weight management Patient seen in collaboration wit Dr Barney Result Diagram: 03/05/19 0539 03/05/19 0539 Results 24hrs Laboratory Tests Test 03/04/19 12:19 03/04/19 17:02 03/04/19 20:39 03/05/19 02:08 Bedside Glucose 202 114 181 191 Test 03/05/19 05:39 03/05/19 07:49 White Blood Count 9.7 Red Blood Count 4.59 Hemoglobin 14.7 Hematocrit 45.1 Mean Corpuscular Volume 98.3 Mean Corpuscular 32.0 Hemoglobin Mean Corpuscular 32.6 Hemoglobin Concent Red Cell Distribution 12.6 Width Platelet Count 244 Mean Platelet Volume 10.6 H Immature Granulocytes % 0.300 Neutrophils % 85.0 H Lymphocytes % 12.1 L Monocytes % 2.5 Eosinophils % 0.0 Basophils % 0.1 Nucleated Red Blood 0.0 Cells % Immature Granulocytes # 0.030 Neutrophils # 8.2 H Lymphocytes # 1.2 Monocytes # 0.2 L Eosinophils # 0.0 Basophils # 0.0 Nucleated Red Blood 0.0 Cells # Sodium Level 141 Potassium Level 5.0 Chloride Level 97 Carbon Dioxide Level 38 H Anion Gap 6 Blood Urea Nitrogen 24 H Creatinine 0.76 Est Glomerular Filtrat > 60 Rate mL/min Glucose Level 213 Calcium Level 9.6 Bedside Glucose 170 Subjective 24 Hr Interval Summary Free Text/Dictation stable nad no new events reported last night dw staff Eyes: no complaints ENT: no complaints Respiratory: no complaints Cardiovascular: no complaints Gastrointestinal: no complaints Genitourinary: no complaints Musculoskeletal: bone/joint pain, restricted range of motion Skin: no complaints Endocrine: no complaints Lymphatic: no complaints Psychological: nl mood/affect Exam/Review of Systems Exam Vitals Vital Signs Date Temp Pulse Resp B/P (MAP) Pulse Ox O2 O2 Flow FiO2 Time Delivery Rate 03/05/19 64 08:02 03/05/19 97.8 18 118/63 96 07:51 (81) 03/05/19 2.0 02:38 03/04/19 Nasal 20:00 Cannula Intake and Output 03/04/19 03/04/19 03/05/19 1515:00 23:00 07:00 IntakeIntake Total 1000 ml BalanceBalance 1000 ml Constitutional: alert, well developed, obese Psych: nl mood/affect Eyes: nl lids ENMT: nl external ears & nose Neck: non-tender Respiratory: clear to auscultation, diminished breath sounds Cardiovascular: nl pulses, other (s1s2) Gastrointestinal: soft, non-tender Musculoskeletal: joint tenderness, range of motion Extremities: normal pulses Neurological: nl mental status, nl speech Lymph: nontender Results Results 24hrs Laboratory Tests Test 03/04/19 12:19 03/04/19 17:02 03/04/19 20:39 03/05/19 02:08 Bedside Glucose 202 114 181 191 Test 03/05/19 05:39 03/05/19 07:49 White Blood Count 9.7 Red Blood Count 4.59 Hemoglobin 14.7 Hematocrit 45.1 Mean Corpuscular Volume 98.3 Mean Corpuscular 32.0 Hemoglobin Mean Corpuscular 32.6 Hemoglobin Concent Red Cell Distribution 12.6 Width Platelet Count 244 Mean Platelet Volume 10.6 H Immature Granulocytes % 0.300 Neutrophils % 85.0 H Lymphocytes % 12.1 L Monocytes % 2.5 Eosinophils % 0.0 Basophils % 0.1 Nucleated Red Blood 0.0 Cells % Immature Granulocytes # 0.030 Neutrophils # 8.2 H Lymphocytes # 1.2 Monocytes # 0.2 L Eosinophils # 0.0 Basophils # 0.0 Nucleated Red Blood 0.0 Cells # Sodium Level 141 Potassium Level 5.0 Chloride Level 97 Carbon Dioxide Level 38 H Anion Gap 6 Blood Urea Nitrogen 24 H Creatinine 0.76 Est Glomerular Filtrat > 60 Rate mL/min Glucose Level 213 Calcium Level 9.6 Bedside Glucose 170 Medications Medication Current Medications Ondansetron HCl (Zofran Inj) 4 mg Q6H PRN IV NAUSEA AND/OR VOMITING; Start 02/27/19 at 19:00 Diagnostic Test (Pha) (Accu-Chek) 1 ea 02 XX ; Start 02/28/19 at 02:00 Insulin Aspart (Novolog Insulin Pen) NOVOLOG *MODERATE* ALGORITHM WITH MEALS BEDTIME SC Last administered on 03/05/19at 07:55; Admin Dose 2 UNIT; Start 02/27/19 at 21:00 Miscellaneous Information 1 ea NOTE XX ; Start 02/27/19 at 19:30 Glucose (Glutose) 15 gm Q15M PRN PO DECREASED GLUCOSE; Start 02/27/19 at 19:30 Glucose (Glutose) 22.5 gm Q15M PRN PO DECREASED GLUCOSE; Start 02/27/19 at 19:30 Dextrose (D50w Syringe) 25 ml Q15M PRN IV DECREASED GLUCOSE; Start 02/27/19 at 19:30 Dextrose (D50w Syringe) 50 ml Q15M PRN IV DECREASED GLUCOSE; Start 02/27/19 at 19:30 Glucagon (Glucagen) 1 mg Q15M PRN IM DECREASED GLUCOSE; Start 02/27/19 at 19:30 Glucose (Glutose) 15 gm Q15M PRN BUCCAL DECREASED GLUCOSE; Start 02/27/19 at 19:30 Nitroglycerin (Nitroglycerin (Sl Tab) 0.4 Mg) 1 tab Q5M PRN SL ANGINA; Start 02/28/19 at 11:30 Aspirin (Halfprin) 81 mg DAILY PO Last administered on 03/05/19at 08:09; Admin Dose 81 MG; Start 03/01/19 at 09:00 Isosorbide Mononitrate (Imdur) 60 mg DAILY PO Last administered on 03/05/19at 08:11; Admin Dose 60 MG; Start 03/01/19 at 09:00 Lisinopril (Zestril) 40 mg DAILY PO Last administered on 03/05/19at 08:11; Admin Dose 40 MG; Start 03/01/19 at 09:00 Metoprolol Succinate (Toprol Xl) 100 mg DAILY PO Last administered on 03/05/19 08:10; Admin Dose 100 MG; Start 03/01/19 at 09:00 Atorvastatin Calcium (Lipitor) 20 mg DAILY@21 PO Last administered on 03/04/19 20:31; Admin Dose 20 MG; Start 02/28/19 at 21:00 Senna (Senokot) 2 tab BID PO Last administered on 03/05/19 08:10; Admin Dose 2 TAB; Start 03/01/19 at 23:30 Albuterol/ Ipratropium (Duoneb) 3 ml Q4H RESP THERAPY PRN HHN SHORTNESS OF BREATH; Start 03/03/19 at 19:30 Furosemide (Lasix) 40 mg BID DIURETICS IV Last administered on 03/05/19 06:10; Admin Dose 40 MG; Start 03/04/19 at 18:00 Ketorolac Tromethamine (Toradol) 30 mg Q6H PRN IV PAIN LEVEL 1-3 Last administered on 03/05/19 10:20; Admin Dose 30 MG; Start 03/04/19 at 17:30; Stop 03/06/19 at 17:00 Methylprednisolone Sodium Succinate (Solu-Medrol) 20 mg BID IV Last administered on 03/05/19 08:12; Admin Dose 20 MG; Start 03/04/19 at 21:00 DEON PATTERSON Mar 05, 2019 11:10
--- NOTE | 2019-03-05 13:45 | CONS ---
Assessment/Plan Assessment/Plan Hospital Course (Demo Recall) IMPRESSION: 1. Chest pain, assess for acute coronary syndrome. Negative troponin x2 at this time, somewhat atypical symptomatology for cardiology and multiple cardiac risk factors-neg trop 3, Lexiscan with no ischemia/EF 54% 2. Congestive heart failure-diastolic acute 3. Hypertension. 4. Dyslipidemia by history. 5. Abnormal electrocardiogram, assess for acute coronary syndrome. 6. Premature ventricular contractions, assess for acute coronary syndrome. 7. Right heel ankle pain.-MRI negative for osteop/arterial JACQUELYN without sig PAD 8. Diabetes mellitus. 9. Leukocytosis. 10. Dizziness Recc: -Tele -Contineu BB/ACEI -Continue statin/asa -Continue imdur -Contineu lasix diuresis and check cxr Consultation Date/Type/Reason Admit Date/Time Feb 28, 2019 at 15:28 Initial Consult Date 02/28/19 Type of Consult Cardiology Reason for Consultation chest pain Requesting Provider: SHEEBA CEJA MD Date/Time of Note DATE: 03/05/19 TIME: 13:43 Exam/Review of Systems Vital Signs Vitals Vital Signs Date Temp Pulse Resp B/P (MAP) Pulse Ox O2 O2 Flow FiO2 Time Delivery Rate 03/05/19 76 12:00 03/05/19 98.1 18 145/73 96 11:38 (97) 03/05/19 2.0 02:38 03/04/19 Nasal 20:00 Cannula Intake and Output 03/04/19 03/04/19 03/05/19 1515:00 23:00 07:00 IntakeIntake Total 1000 ml BalanceBalance 1000 ml Exam Exam Review of Systems: CONSTITUTIONAL: No fevers, chills. PULMONARY: mild sob CARDIOVASCULAR: No chest pain/palpitations GASTROINTESTINAL: No nausea/vomiting. GENITOURINARY: No hematuria/dysuria. MUSCULOSKELETAL: foot pain PSYCHIATRIC: The patient denies depression. NEUROLOGIC: No weakness Constitutional: alert, oriented Psych: no complaints Head: normocephalic ENMT: mucosa pink and moist Neck: supple, jvd (9 cm water) Respiratory: clear to auscultation Cardiovascular: regular rate and rhythm Gastrointestinal: soft, non-tender Musculoskeletal: muscle tone (normal) Extremities: edema (trace/B) Labs Result Diagram: 03/05/19 0539 03/05/19 0539 Results 24hrs Laboratory Tests Test 03/04/19 17:02 03/04/19 20:39 03/05/19 02:08 03/05/19 05:39 Bedside Glucose 114 181 191 White Blood Count 9.7 Red Blood Count 4.59 Hemoglobin 14.7 Hematocrit 45.1 Mean Corpuscular Volume 98.3 Mean Corpuscular 32.0 Hemoglobin Mean Corpuscular 32.6 Hemoglobin Concent Red Cell Distribution 12.6 Width Platelet Count 244 Mean Platelet Volume 10.6 H Immature Granulocytes % 0.300 Neutrophils % 85.0 H Lymphocytes % 12.1 L Monocytes % 2.5 Eosinophils % 0.0 Basophils % 0.1 Nucleated Red Blood 0.0 Cells % Immature Granulocytes # 0.030 Neutrophils # 8.2 H Lymphocytes # 1.2 Monocytes # 0.2 L Eosinophils # 0.0 Basophils # 0.0 Nucleated Red Blood 0.0 Cells # Sodium Level 141 Potassium Level 5.0 Chloride Level 97 Carbon Dioxide Level 38 H Anion Gap 6 Blood Urea Nitrogen 24 H Creatinine 0.76 Est Glomerular Filtrat > 60 Rate mL/min Glucose Level 213 Calcium Level 9.6 Test 03/05/19 07:49 03/05/19 11:48 Bedside Glucose 170 215 Medications Medications Current Medications Ondansetron HCl (Zofran Inj) 4 mg Q6H PRN IV NAUSEA AND/OR VOMITING; Start 02/27/19 at 19:00 Diagnostic Test (Pha) (Accu-Chek) 1 ea 02 XX ; Start 02/28/19 at 02:00 Insulin Aspart (Novolog Insulin Pen) NOVOLOG *MODERATE* ALGORITHM WITH MEALS BEDTIME SC Last administered on 03/05/19at 11:58; Admin Dose 4 UNIT; Start 02/27/19 at 21:00 Miscellaneous Information 1 ea NOTE XX ; Start 02/27/19 at 19:30 Glucose (Glutose) 15 gm Q15M PRN PO DECREASED GLUCOSE; Start 02/27/19 at 19:30 Glucose (Glutose) 22.5 gm Q15M PRN PO DECREASED GLUCOSE; Start 02/27/19 at 19:30 Dextrose (D50w Syringe) 25 ml Q15M PRN IV DECREASED GLUCOSE; Start 02/27/19 at 19:30 Dextrose (D50w Syringe) 50 ml Q15M PRN IV DECREASED GLUCOSE; Start 02/27/19 at 19:30 Glucagon (Glucagen) 1 mg Q15M PRN IM DECREASED GLUCOSE; Start 02/27/19 at 19:30 Glucose (Glutose) 15 gm Q15M PRN BUCCAL DECREASED GLUCOSE; Start 02/27/19 at 19:30 Nitroglycerin (Nitroglycerin (Sl Tab) 0.4 Mg) 1 tab Q5M PRN SL ANGINA; Start 02/28/19 at 11:30 Aspirin (Halfprin) 81 mg DAILY PO Last administered on 03/05/19 08:09; Admin Dose 81 MG; Start 03/01/19 at 09:00 Isosorbide Mononitrate (Imdur) 60 mg DAILY PO Last administered on 03/05/19 08:11; Admin Dose 60 MG; Start 03/01/19 at 09:00 Lisinopril (Zestril) 40 mg DAILY PO Last administered on 03/05/19 08:11; Admin Dose 40 MG; Start 03/01/19 at 09:00 Metoprolol Succinate (Toprol Xl) 100 mg DAILY PO Last administered on 03/05/19 08:10; Admin Dose 100 MG; Start 03/01/19 at 09:00 Atorvastatin Calcium (Lipitor) 20 mg DAILY@21 PO Last administered on 03/04/19 20:31; Admin Dose 20 MG; Start 02/28/19 at 21:00 Senna (Senokot) 2 tab BID PO Last administered on 03/05/19 08:10; Admin Dose 2 TAB; Start 03/01/19 at 23:30 Albuterol/ Ipratropium (Duoneb) 3 ml Q4H RESP THERAPY PRN HHN SHORTNESS OF BREATH; Start 03/03/19 at 19:30 Furosemide (Lasix) 40 mg BID DIURETICS IV Last administered on 03/05/19 06:10; Admin Dose 40 MG; Start 03/04/19 at 18:00 Ketorolac Tromethamine (Toradol) 30 mg Q6H PRN IV PAIN LEVEL 1-3 Last administered on 03/05/19 10:20; Admin Dose 30 MG; Start 03/04/19 at 17:30; Stop 03/06/19 at 17:00 Methylprednisolone Sodium Succinate (Solu-Medrol) 20 mg BID IV Last administered on 03/05/19 08:12; Admin Dose 20 MG; Start 03/04/19 at 21:00 HARPAL SIMONS Mar 05, 2019 13:45
[2019-03-05] MEDS: ATORVASTATIN 20 MG TAB PO SCH (20:13)
[2019-03-06] VITALS (11 sets, daily range): BP systolic 124–146; BP diastolic 59–76; PULSE 55–79; RESP 17–18
[2019-03-06] MEDS: ACCU-CHEK XX SCH (02:00)
[2019-03-06] MEDS: FUROSEMIDE 40 MG INJ IV SCH ×2 (05:42→17:00)
--- NOTE | 2019-03-06 07:14 | PN ---
Date/Time of Note Date/Time of Note DATE: 03/06/19 TIME: 07:14 Assessment/Plan VTE Prophylaxis Risk score (from [facility] [place]0 risk: 6 SCD applied (from [facility] [place]): No SCD contraindicated: other Pharmacological prophylaxis: other Pharm contraindication: other Lines/Catheters IV Catheter Type (from [facility]): Saline Lock Assessment/Plan Assessment/Plan - Leukocytosis- possibly 2/2 steroids; afebrile - Hyperuricemia- - start on Uloric 40 MG PO daily -Chest pain- noen at present -cardiac enzymes are neg x 3. Lexiscan with no ischemia/EF 54%. -Dr. Gould is following in cardiology consultation. -Acute on chronic diastolic dysfunction CHF with preserved EF 55%. Continue Lasix monitor electrolytes. -Intractable right foot pain swelling and inability to walk. Osteoarthrosis of tarsometatarsal joints of the right foot and first metatarsophalangeal joint. - -podiatry consult .- staff to notify podiatary -Diabetes mellitus type -HTN -Morbid obesity with BMI of 46.1 -weight management Further recommendations based on clinical course. Plan of care discussed with Dr. De La Paz. Result Diagram: 03/06/19 0508 03/05/19 0539 Results 24hrs Laboratory Tests Test 03/05/19 07:49 03/05/19 11:48 03/05/19 17:19 03/05/19 20:23 Bedside Glucose 170 215 166 210 Test 03/06/19 02:02 03/06/19 05:08 Bedside Glucose 202 White Blood Count 15.5 #H Red Blood Count 4.60 Hemoglobin 14.8 Hematocrit 45.1 Mean Corpuscular Volume 98.0 Mean Corpuscular 32.2 Hemoglobin Mean Corpuscular 32.8 Hemoglobin Concent Red Cell Distribution 12.7 Width Platelet Count 244 Mean Platelet Volume 10.9 H Immature Granulocytes % 0.600 H Neutrophils % 85.4 H Lymphocytes % 9.7 L Monocytes % 4.2 Eosinophils % 0.0 Basophils % 0.1 Nucleated Red Blood 0.0 Cells % Immature Granulocytes # 0.090 H Neutrophils # 13.3 H Lymphocytes # 1.5 Monocytes # 0.7 Eosinophils # 0.0 Basophils # 0.0 Nucleated Red Blood 0.0 Cells # Subjective 24 Hr Interval Summary Free Text/Dictation stable nad - Leukocytosis 2/2 on steroids; afebrile -elevated Uric acid- will statrt on Uloric 40 mg po; staff to notify podiatry; no new events reported last night dw staff ENT: no complaints Respiratory: no complaints Cardiovascular: no complaints Gastrointestinal: no complaints Genitourinary: no complaints Musculoskeletal: bone/joint pain, restricted range of motion Skin: no complaints Exam/Review of Systems Exam Vitals Vital Signs Date Temp Pulse Resp B/P (MAP) Pulse Ox O2 O2 Flow FiO2 Time Delivery Rate 03/06/19 55 04:00 03/06/19 2.0 02:29 03/06/19 98.0 18 146/76 96 00:22 (99) 03/05/19 Nasal 20:00 Cannula Intake and Output 03/05/19 03/05/19 03/06/19 1515:00 23:00 07:00 IntakeIntake Total 700 ml 400 ml BalanceBalance 700 ml 400 ml Constitutional: alert, well developed, obese Psych: nl mood/affect Eyes: nl lids, nl sclera ENMT: nl external ears & nose Neck: non-tender Respiratory: clear to auscultation Cardiovascular: nl pulses, other (s1s2) Gastrointestinal: soft, non-tender Musculoskeletal: joint tenderness, range of motion Extremities: normal pulses Neurological: nl speech, other (alert/resposive) Results Results 24hrs Laboratory Tests Test 03/05/19 07:49 03/05/19 11:48 03/05/19 17:19 03/05/19 20:23 Bedside Glucose 170 215 166 210 Test 03/06/19 02:02 03/06/19 05:08 Bedside Glucose 202 White Blood Count 15.5 #H Red Blood Count 4.60 Hemoglobin 14.8 Hematocrit 45.1 Mean Corpuscular Volume 98.0 Mean Corpuscular 32.2 Hemoglobin Mean Corpuscular 32.8 Hemoglobin Concent Red Cell Distribution 12.7 Width Platelet Count 244 Mean Platelet Volume 10.9 H Immature Granulocytes % 0.600 H Neutrophils % 85.4 H Lymphocytes % 9.7 L Monocytes % 4.2 Eosinophils % 0.0 Basophils % 0.1 Nucleated Red Blood 0.0 Cells % Immature Granulocytes # 0.090 H Neutrophils # 13.3 H Lymphocytes # 1.5 Monocytes # 0.7 Eosinophils # 0.0 Basophils # 0.0 Nucleated Red Blood 0.0 Cells # Medications Medication Current Medications Ondansetron HCl (Zofran Inj) 4 mg Q6H PRN IV NAUSEA AND/OR VOMITING; Start 02/27/19 at 19:00 Diagnostic Test (Pha) (Accu-Chek) 1 ea 02 XX Last administered on 03/06/19at 02: 00; Admin Dose 1 EA; Start 02/28/19 at 02:00 Insulin Aspart (Novolog Insulin Pen) NOVOLOG *MODERATE* ALGORITHM WITH MEALS BEDTIME SC Last administered on 03/05/19at 20:45; Admin Dose 1 UNIT; Start 02/27 at 21:00 Miscellaneous Information 1 ea NOTE XX ; Start 02/27/19 at 19:30 Glucose (Glutose) 15 gm Q15M PRN PO DECREASED GLUCOSE; Start 02/27/19 at 19:30 Glucose (Glutose) 22.5 gm Q15M PRN PO DECREASED GLUCOSE; Start 02/27/19 at 19:30 Dextrose (D50w Syringe) 25 ml Q15M PRN IV DECREASED GLUCOSE; Start 02/27/19 at 19:30 Dextrose (D50w Syringe) 50 ml Q15M PRN IV DECREASED GLUCOSE; Start 02/27/19 at 19:30 Glucagon (Glucagen) 1 mg Q15M PRN IM DECREASED GLUCOSE; Start 02/27/19 at 19:30 Glucose (Glutose) 15 gm Q15M PRN BUCCAL DECREASED GLUCOSE; Start 02/27/19 at 19:30 Nitroglycerin (Nitroglycerin (Sl Tab) 0.4 Mg) 1 tab Q5M PRN SL ANGINA; Start 02/28/19 at 11:30 Aspirin (Halfprin) 81 mg DAILY PO Last administered on 03/05/19at 08:09; Admin Dose 81 MG; Start 03/01/19 at 09:00 Isosorbide Mononitrate (Imdur) 60 mg DAILY PO Last administered on 03/05/19 08:11; Admin Dose 60 MG; Start 03/01/19 at 09:00 Lisinopril (Zestril) 40 mg DAILY PO Last administered on 03/05/19 08:11; Admin Dose 40 MG; Start 03/01/19 at 09:00 Metoprolol Succinate (Toprol Xl) 100 mg DAILY PO Last administered on 03/05/19 08:10; Admin Dose 100 MG; Start 03/01/19 at 09:00 Atorvastatin Calcium (Lipitor) 20 mg DAILY@21 PO Last administered on 03/05/19 20:13; Admin Dose 20 MG; Start 02/28/19 at 21:00 Senna (Senokot) 2 tab BID PO Last administered on 03/05/19 20:13; Admin Dose 2 TAB; Start 03/01/19 at 23:30 Albuterol/ Ipratropium (Duoneb) 3 ml Q4H RESP THERAPY PRN HHN SHORTNESS OF BREATH; Start 03/03/19 at 19:30 Furosemide (Lasix) 40 mg BID DIURETICS IV Last administered on 03/06/19 05:42; Admin Dose 40 MG; Start 03/04/19 at 18:00 Ketorolac Tromethamine (Toradol) 30 mg Q6H PRN IV PAIN LEVEL 1-3 Last administered on 03/05/19 10:20; Admin Dose 30 MG; Start 03/04/19 at 17:30; Stop 03/06/19 at 17:00 Methylprednisolone Sodium Succinate (Solu-Medrol) 20 mg BID IV Last administered on 03/05/19 20:13; Admin Dose 20 MG; Start 03/04/19 at 21:00 DEON PATTERSON Mar 06, 2019 07:14
[2019-03-06] MEDS: INSULIN ASPART [NOVOLOG] 3 ML PEN SC SCH ×4 (07:57→20:16)
[2019-03-06] MEDS: METHYLPREDNISOLONE 40 MG INJ IV SCH ×2 (08:05→20:12)
[2019-03-06] MEDS: SENNA TAB PO SCH ×2 (08:06→20:12)
[2019-03-06] MEDS: METOPROLOL (XL) 100 MG TAB PO SCH (08:06)
[2019-03-06] MEDS: LISINOPRIL 20 MG TAB PO SCH (08:06)
[2019-03-06] MEDS: ISOSORBIDE MONONITRATE(SR)60 MG TAB PO SCH (08:06)
[2019-03-06] MEDS: ASPIRIN (EC) 81 MG TAB PO SCH (08:06)
--- NOTE | 2019-03-06 13:34 | CONS ---
Assessment/Plan Assessment/Plan Hospital Course (Demo Recall) IMPRESSION: 1. Chest pain, assess for acute coronary syndrome. Negative troponin x2 at this time, somewhat atypical symptomatology for cardiology and multiple cardiac risk factors-neg trop 3, Lexiscan with no ischemia/EF 54% 2. Congestive heart failure-diastolic acute 3. Hypertension.-reasonable control 4. Dyslipidemia by history. 5. Abnormal electrocardiogram, assess for acute coronary syndrome. 6. Premature ventricular contractions, assess for acute coronary syndrome. 7. Right heel ankle pain.-MRI negative for osteop/arterial JACQUELYN without sig PAD 8. Diabetes mellitus. 9. Leukocytosis. 10. Dizziness Recc: -Tele -Contineu BB/ACEI -Continue statin/asa -Continue imdur -Contineu lasix diuresis and foloow volume status clsoely Consultation Date/Type/Reason Admit Date/Time Feb 28, 2019 at 15:28 Initial Consult Date 02/28/19 Type of Consult Cardiology Reason for Consultation chest pain/CHF Requesting Provider: SHEEBA CEJA MD Date/Time of Note DATE: 03/06/19 TIME: 13:31 Exam/Review of Systems Vital Signs Vitals Vital Signs Date Temp Pulse Resp B/P (MAP) Pulse Ox O2 O2 Flow FiO2 Time Delivery Rate 03/06/19 98.0 72 18 139/72 98 12:45 (94) 03/06/19 Nasal 2.0 07:41 Cannula Intake and Output 03/05/19 03/05/19 03/06/19 1515:00 23:00 07:00 IntakeIntake Total 700 ml 400 ml BalanceBalance 700 ml 400 ml Exam Exam Review of Systems: CONSTITUTIONAL: No fevers, chills. PULMONARY: No sob CARDIOVASCULAR: No chest pain/palpitations GASTROINTESTINAL: No nausea/vomiting. GENITOURINARY: No hematuria/dysuria. MUSCULOSKELETAL: No myagias/arthalgias. PSYCHIATRIC: The patient denies depression. NEUROLOGIC: No weakness Constitutional: alert Psych: no complaints Head: normocephalic ENMT: mucosa pink and moist Neck: supple, jvd (9 cm water) Respiratory: diminished breath sounds (at bases/B) Cardiovascular: regular rate and rhythm Gastrointestinal: soft, non-tender Musculoskeletal: muscle tone (normal) Extremities: edema (trace/B) Neurological: other (NO focal deficts) Labs Result Diagram: 03/06/19 0508 03/06/19 0508 Results 24hrs Laboratory Tests Test 03/05/19 17:19 03/05/19 20:23 03/06/19 02:02 03/06/19 05:08 Bedside Glucose 166 210 202 White Blood Count 15.5 #H Red Blood Count 4.60 Hemoglobin 14.8 Hematocrit 45.1 Mean Corpuscular Volume 98.0 Mean Corpuscular 32.2 Hemoglobin Mean Corpuscular 32.8 Hemoglobin Concent Red Cell Distribution 12.7 Width Platelet Count 244 Mean Platelet Volume 10.9 H Immature Granulocytes % 0.600 H Neutrophils % 85.4 H Lymphocytes % 9.7 L Monocytes % 4.2 Eosinophils % 0.0 Basophils % 0.1 Nucleated Red Blood 0.0 Cells % Immature Granulocytes # 0.090 H Neutrophils # 13.3 H Lymphocytes # 1.5 Monocytes # 0.7 Eosinophils # 0.0 Basophils # 0.0 Nucleated Red Blood 0.0 Cells # Sodium Level 140 Potassium Level 4.8 Chloride Level 96 L Carbon Dioxide Level 38 H Anion Gap 6 Blood Urea Nitrogen 27 H Creatinine 0.68 Est Glomerular Filtrat > 60 Rate mL/min Glucose Level 192 Calcium Level 9.8 Test 03/06/19 07:53 03/06/19 12:16 Bedside Glucose 164 196 Medications Medications Current Medications Ondansetron HCl (Zofran Inj) 4 mg Q6H PRN IV NAUSEA AND/OR VOMITING; Start 02/27/19 at 19:00 Diagnostic Test (Pha) (Accu-Chek) 1 ea 02 XX Last administered on 03/06/19at 02:00; Admin Dose 1 EA; Start 02/28/19 at 02:00 Insulin Aspart (Novolog Insulin Pen) NOVOLOG *MODERATE* ALGORITHM WITH MEALS BEDTIME SC Last administered on 03/06/19at 12:17; Admin Dose 4 UNIT; Start 02/27/19 at 21:00 Miscellaneous Information 1 ea NOTE XX ; Start 02/27/19 at 19:30 Glucose (Glutose) 15 gm Q15M PRN PO DECREASED GLUCOSE; Start 02/27/19 at 19:30 Glucose (Glutose) 22.5 gm Q15M PRN PO DECREASED GLUCOSE; Start 02/27/19 at 19:30 Dextrose (D50w Syringe) 25 ml Q15M PRN IV DECREASED GLUCOSE; Start 02/27/19 at 19:30 Dextrose (D50w Syringe) 50 ml Q15M PRN IV DECREASED GLUCOSE; Start 02/27/19 at 19:30 Glucagon (Glucagen) 1 mg Q15M PRN IM DECREASED GLUCOSE; Start 02/27/19 at 19:30 Glucose (Glutose) 15 gm Q15M PRN BUCCAL DECREASED GLUCOSE; Start 02/27/19 at 19:30 Nitroglycerin (Nitroglycerin (Sl Tab) 0.4 Mg) 1 tab Q5M PRN SL ANGINA; Start 02/28/19 at 11:30 Aspirin (Halfprin) 81 mg DAILY PO Last administered on 03/06/19 08:06; Admin Dose 81 MG; Start 03/01/19 at 09:00 Isosorbide Mononitrate (Imdur) 60 mg DAILY PO Last administered on 03/06/19 08:06; Admin Dose 60 MG; Start 03/01/19 at 09:00 Lisinopril (Zestril) 40 mg DAILY PO Last administered on 03/06/19 08:06; Admin Dose 40 MG; Start 03/01/19 at 09:00 Metoprolol Succinate (Toprol Xl) 100 mg DAILY PO Last administered on 03/06/19 08:06; Admin Dose 100 MG; Start 03/01/19 at 09:00 Atorvastatin Calcium (Lipitor) 20 mg DAILY@21 PO Last administered on 03/05/19 20:13; Admin Dose 20 MG; Start 02/28/19 at 21:00 Senna (Senokot) 2 tab BID PO Last administered on 03/06/19 08:06; Admin Dose 2 TAB; Start 03/01/19 at 23:30 Albuterol/ Ipratropium (Duoneb) 3 ml Q4H RESP THERAPY PRN HHN SHORTNESS OF BREATH; Start 03/03/19 at 19:30 Furosemide (Lasix) 40 mg BID DIURETICS IV Last administered on 03/06/19at 05:42; Admin Dose 40 MG; Start 03/04/19 at 18:00 Ketorolac Tromethamine (Toradol) 30 mg Q6H PRN IV PAIN LEVEL 1-3 Last ad ministered on 03/05/19at 10:20; Admin Dose 30 MG; Start 03/04/19 at 17:30; Stop 03/06/19 at 17:00 Methylprednisolone Sodium Succinate (Solu-Medrol) 20 mg BID IV Last administered on 03/06/19at 08:05; Admin Dose 20 MG; Start 03/04/19 at 21:00 HARPAL SIMONS Mar 06, 2019 13:34
[2019-03-06] MEDS: ATORVASTATIN 20 MG TAB PO SCH (20:12)
[2019-03-07] VITALS (11 sets, daily range): BP systolic 108–141; BP diastolic 60–72; PULSE 53–85; RESP 17–18
[2019-03-07] MEDS: ACCU-CHEK XX SCH (02:00)
[2019-03-07] MEDS: FUROSEMIDE 40 MG INJ IV SCH (05:23)
[2019-03-07] MEDS: INSULIN ASPART [NOVOLOG] 3 ML PEN SC SCH ×4 (07:41→21:00)
[2019-03-07] MEDS: FEBUXOSTAT 40 MG TABLET PO SCH (09:30)
[2019-03-07] MEDS: LISINOPRIL 20 MG TAB PO SCH (09:30)
[2019-03-07] MEDS: ISOSORBIDE MONONITRATE(SR)60 MG TAB PO SCH (09:30)
[2019-03-07] MEDS: METOPROLOL (XL) 100 MG TAB PO SCH (09:30)
[2019-03-07] MEDS: ASPIRIN (EC) 81 MG TAB PO SCH (09:31)
[2019-03-07] MEDS: METHYLPREDNISOLONE 40 MG INJ IV SCH (09:31)
[2019-03-07] MEDS: SENNA TAB PO SCH ×2 (09:31→21:00)
--- NOTE | 2019-03-07 11:43 | CONS ---
Assessment/Plan Assessment/Plan Hospital Course (Demo Recall) IMPRESSION: 1. Chest pain, assess for acute coronary syndrome. Negative troponin x2 at this time, somewhat atypical symptomatology for cardiology and multiple cardiac risk factors-neg trop 3, Lexiscan with no ischemia/EF 54% 2. Congestive heart failure-diastolic acute 3. Hypertension.-reasonable control 4. Dyslipidemia by history. 5. Abnormal electrocardiogram, assess for acute coronary syndrome. 6. Premature ventricular contractions, assess for acute coronary syndrome. 7. Right heel ankle pain.-MRI negative for osteop/arterial JACQUELYN without sig PAD 8. Diabetes mellitus. 9. Leukocytosis. 10. Dizziness Recc: -Tele -Contineu BB/ACEI -Continue statin/asa -Continue imdur -Contineu lasix diuresis and follow volume status clsoely with probable transition to PO lasix and then patient o=is ok for d/c from cardiac standpoint Consultation Date/Type/Reason Admit Date/Time Feb 28, 2019 at 15:28 Initial Consult Date 02/28/19 Type of Consult Cardiology Reason for Consultation chest pain/CHF Requesting Provider: SHEEBA CEJA MD Date/Time of Note DATE: 03/07/19 TIME: 11:41 Exam/Review of Systems Vital Signs Vitals Vital Signs Date Temp Pulse Resp B/P (MAP) Pulse Ox O2 O2 Flow FiO2 Time Delivery Rate 03/07/19 Nasal 2.0 10:00 Cannula 03/07/19 60 08:00 03/07/19 98.0 18 141/65 99 07:58 (90) Intake and Output 03/06/19 03/06/19 03/07/19 1515:00 23:00 07:00 IntakeIntake Total 250 ml BalanceBalance 250 ml Exam Exam Review of Systems: CONSTITUTIONAL: No fevers, chills. PULMONARY: No sob CARDIOVASCULAR: No chest pain/palpitations GASTROINTESTINAL: No nausea/vomiting. GENITOURINARY: No hematuria/dysuria. MUSCULOSKELETAL: No myagias/arthalgias. PSYCHIATRIC: The patient denies depression. NEUROLOGIC: No weakness Constitutional: alert Psych: no complaints Head: normocephalic ENMT: mucosa pink and moist Neck: supple, jvd (9 cm water) Respiratory: diminished breath sounds (at bases/B) Cardiovascular: regular rate and rhythm Gastrointestinal: soft, non-tender Musculoskeletal: muscle tone (normal) Extremities: edema (none) Neurological: other (no focal deficits) Labs Result Diagram: 03/06/19 0508 03/06/19 0508 Results 24hrs Laboratory Tests Test 03/06/19 12:16 03/06/19 16:48 03/06/19 20:16 03/07/19 07:34 Bedside Glucose 196 238 H 153 167 Medications Medications Current Medications Ondansetron HCl (Zofran Inj) 4 mg Q6H PRN IV NAUSEA AND/OR VOMITING; Start 02/27/19 at 19:00 Diagnostic Test (Pha) (Accu-Chek) 1 ea 02 XX Last administered on 03/06/19at 02:00; Admin Dose 1 EA; Start 02/28/19 at 02:00 Insulin Aspart (Novolog Insulin Pen) NOVOLOG *MODERATE* ALGORITHM WITH MEALS BEDTIME SC Last administered on 03/07/19at 07:41; Admin Dose 2 UNIT; Start 02/27/19 at 21:00 Miscellaneous Information 1 ea NOTE XX ; Start 02/27/19 at 19:30 Glucose (Glutose) 15 gm Q15M PRN PO DECREASED GLUCOSE; Start 02/27/19 at 19:30 Glucose (Glutose) 22.5 gm Q15M PRN PO DECREASED GLUCOSE; Start 02/27/19 at 19:30 Dextrose (D50w Syringe) 25 ml Q15M PRN IV DECREASED GLUCOSE; Start 02/27/19 at 19:30 Dextrose (D50w Syringe) 50 ml Q15M PRN IV DECREASED GLUCOSE; Start 02/27/19 at 19:30 Glucagon (Glucagen) 1 mg Q15M PRN IM DECREASED GLUCOSE; Start 02/27/19 at 19:30 Glucose (Glutose) 15 gm Q15M PRN BUCCAL DECREASED GLUCOSE; Start 02/27/19 at 19:30 Nitroglycerin (Nitroglycerin (Sl Tab) 0.4 Mg) 1 tab Q5M PRN SL ANGINA; Start 02/28/19 at 11:30 Aspirin (Halfprin) 81 mg DAILY PO Last administered on 03/07/19at 09:31; Admin Dose 81 MG; Start 03/01/19 at 09:00 Isosorbide Mononitrate (Imdur) 60 mg DAILY PO Last administered on 03/07/19at 09:30; Admin Dose 60 MG; Start 03/01/19 at 09:00 Lisinopril (Zestril) 40 mg DAILY PO Last administered on 03/07/19 09:30; Admin Dose 40 MG; Start 03/01/19 at 09:00 Metoprolol Succinate (Toprol Xl) 100 mg DAILY PO Last administered on 03/07/19 09:30; Admin Dose 100 MG; Start 03/01/19 at 09:00 Atorvastatin Calcium (Lipitor) 20 mg DAILY@21 PO Last administered on 03/06/19 20:12; Admin Dose 20 MG; Start 02/28/19 at 21:00 Senna (Senokot) 2 tab BID PO Last administered on 03/07/19 09:31; Admin Dose 2 TAB; Start 03/01/19 at 23:30 Albuterol/ Ipratropium (Duoneb) 3 ml Q4H RESP THERAPY PRN HHN SHORTNESS OF BREATH; Start 03/03/19 at 19:30 Furosemide (Lasix) 40 mg BID DIURETICS IV Last administered on 03/07/19 05:23; Admin Dose 40 MG; Start 03/04/19 at 18:00 Methylprednisolone Sodium Succinate (Solu-Medrol) 20 mg BID IV Last administered on 03/07/19 09:31; Admin Dose 20 MG; Start 03/04/19 at 21:00 Febuxostat (Uloric) 40 mg DAILY PO Last administered on 03/07/19 09:30; Admin Dose 40 MG; Start 03/07/19 at 09:00 HARPAL SIMONS Mar 07, 2019 11:43
--- NOTE | 2019-03-07 14:54 | PN ---
Date/Time of Note Date/Time of Note DATE: 03/07/19 TIME: 14:36 Assessment/Plan VTE Prophylaxis Risk score (from Ns)>0 risk: 5 SCD applied (from Nsg): Yes Pharmacological prophylaxis: other Lines/Catheters IV Catheter Type (from Nrsg): Saline Lock Urinary Cath still in place: No Assessment/Plan Hospital Course Patient patient is stated some improvement in right foot pain, denies any chest pain, continue current management, continue physical therapy. Assessment/Plan -Chest pain, rule out acute coronary syndrome, cardiac enzymes are neg x 3. Lexiscan with no ischemia/EF 54%. Dr. Gould is following in cardiology consultation. -Possible gout flareup, continue Uloric and Solu-Medrol. -Acute on chronic diastolic dysfunction CHF with preserved EF 55%. Continue Lasix monitor electrolytes. -Intractable right foot pain swelling and inability to walk. Osteoarthrosis of tarsometatarsal joints of the right foot and first metatarsophalangeal joint. podiatry consult . -Diabetes mellitus type 2 -HTN -Morbid obesity with BMI of 46.1 Further recommendations based on clinical course. Plan of care discussed with Dr. De La Paz. Result Diagram: 03/06/19 0508 03/06/19 0508 Results 24hrs Laboratory Tests Test 03/06/19 16:48 03/06/19 20:16 03/07/19 07:34 03/07/19 12:17 Bedside Glucose 238 H 153 167 150 Exam/Review of Systems Exam Vitals Vital Signs Date Temp Pulse Resp B/P (MAP) Pulse Ox O2 O2 Flow FiO2 Time Delivery Rate 03/07/19 98.0 58 18 140/69 97 12:32 (92) 03/07/19 Nasal 2.0 10:00 Cannula Intake and Output 03/06/19 03/06/19 03/07/19 1515:00 23:00 07:00 IntakeIntake Total 250 ml BalanceBalance 250 ml Exam Constitutional: alert, oriented Respiratory: clear to auscultation Cardiovascular: regular rate and rhythm Gastrointestinal: soft, non-tender Musculoskeletal: nl extremities to inspection Extremities: normal pulses, other Results Results 24hrs Laboratory Tests Test 03/06/19 16:48 03/06/19 20:16 03/07/19 07:34 03/07/19 12:17 Bedside Glucose 238 H 153 167 150 Medications Medication Current Medications Ondansetron HCl (Zofran Inj) 4 mg Q6H PRN IV NAUSEA AND/OR VOMITING; Start 02/27/19 at 19:00 Diagnostic Test (Pha) (Accu-Chek) 1 ea 02 XX Last administered on 03/06/19at 02:00; Admin Dose 1 EA; Start 02/28/19 at 02:00 Insulin Aspart (Novolog Insulin Pen) NOVOLOG *MODERATE* ALGORITHM WITH MEALS BEDTIME SC Last administered on 03/07/19at 12:30; Admin Dose 2 UNIT; Start 02/27/19 at 21:00 Miscellaneous Information 1 ea NOTE XX ; Start 02/27/19 at 19:30 Glucose (Glutose) 15 gm Q15M PRN PO DECREASED GLUCOSE; Start 02/27/19 at 19:30 Glucose (Glutose) 22.5 gm Q15M PRN PO DECREASED GLUCOSE; Start 02/27/19 at 19:30 Dextrose (D50w Syringe) 25 ml Q15M PRN IV DECREASED GLUCOSE; Start 02/27/19 at 19:30 Dextrose (D50w Syringe) 50 ml Q15M PRN IV DECREASED GLUCOSE; Start 02/27/19 at 19:30 Glucagon (Glucagen) 1 mg Q15M PRN IM DECREASED GLUCOSE; Start 02/27/19 at 19:30 Glucose (Glutose) 15 gm Q15M PRN BUCCAL DECREASED GLUCOSE; Start 02/27/19 at 19:30 Nitroglycerin (Nitroglycerin (Sl Tab) 0.4 Mg) 1 tab Q5M PRN SL ANGINA; Start 02/28/19 at 11:30 Aspirin (Halfprin) 81 mg DAILY PO Last administered on 03/07/19at 09:31; Admin Dose 81 MG; Start 03/01/19 at 09:00 Isosorbide Mononitrate (Imdur) 60 mg DAILY PO Last administered on 03/07/19 09:30; Admin Dose 60 MG; Start 03/01/19 at 09:00 Lisinopril (Zestril) 40 mg DAILY PO Last administered on 03/07/19 09:30; Admin Dose 40 MG; Start 03/01/19 at 09:00 Metoprolol Succinate (Toprol Xl) 100 mg DAILY PO Last administered on 6/10/19at 09:30; Admin Dose 100 MG; Start 03/01/19 at 09:00 Atorvastatin Calcium (Lipitor) 20 mg DAILY@21 PO Last administered on 03/06/19at 20:12; Admin Dose 20 MG; Start 02/28/19 at 21:00 Senna (Senokot) 2 tab BID PO Last administered on 03/07/19at 09:31; Admin Dose 2 TAB; Start 03/01/19 at 23:30 Albuterol/ Ipratropium (Duoneb) 3 ml Q4H RESP THERAPY PRN HHN SHORTNESS OF BREATH; Start 03/03/19 at 19:30 Methylprednisolone Sodium Succinate (Solu-Medrol) 20 mg BID IV Last administered on 03/07/19at 09:31; Admin Dose 20 MG; Start 03/04/19 at 21:00 Febuxostat (Uloric) 40 mg DAILY PO Last administered on 03/07/19at 09:30; Admin Dose 40 MG; Start 03/07/19 at 09:00 Furosemide (Lasix) 40 mg BID DIURETICS PO ; Start 03/07/19 at 18:00 REBECCA CASTELLANO Mar 07, 2019 14:46
[2019-03-07] MEDS: FUROSEMIDE 40 MG TAB PO SCH (17:24)
[2019-03-07] MEDS: ATORVASTATIN 20 MG TAB PO SCH (20:53)
[2019-03-07] MEDS ORDERED: INSULIN ASPART [NOVOLOG] 3 ML PEN SC ONE (22:00)
[2019-03-08] VITALS (12 sets, daily range): BP systolic 120–170; BP diastolic 61–80; PULSE 50–84; RESP 18–20
[2019-03-08] MEDS: ACCU-CHEK XX SCH (02:05)
[2019-03-08] MEDS: FUROSEMIDE 40 MG TAB PO SCH ×2 (06:36→17:32)
[2019-03-08] MEDS: INSULIN ASPART [NOVOLOG] 3 ML PEN SC SCH ×4 (08:00→23:35)
[2019-03-08] MEDS: SENNA TAB PO SCH ×2 (08:08→20:40)
[2019-03-08] MEDS: FEBUXOSTAT 40 MG TABLET PO SCH (08:08)
[2019-03-08] MEDS: ASPIRIN (EC) 81 MG TAB PO SCH (08:08)
[2019-03-08] MEDS: LISINOPRIL 20 MG TAB PO SCH (08:09)
[2019-03-08] MEDS: ISOSORBIDE MONONITRATE(SR)60 MG TAB PO SCH (08:09)
[2019-03-08] MEDS: METOPROLOL (XL) 100 MG TAB PO SCH (08:10)
--- NOTE | 2019-03-08 08:56 | CONS ---
Consult Date/Type/Reason Admit Date/Time Feb 28, 2019 at 15:28 Initial Consult Date Requesting Provider: SHEEBA CEJA MD Date/Time of Note DATE: 03/08/19 TIME: 08:54 Subjective NO acute events - pt better - sitting in a chair - some SB, 1+ edema - con't diuresis. Dispo planned. ROS: No fever, no chills, no nausea, no vomiting, no diarrhea/constipation No recent weight changes No chest pain, no PND, no orthopnea - improved SOB No dizziness, blurred vision No thirst, no heat or cold intolerance Objective Vitals Vital Signs Date Temp Pulse Resp B/P (MAP) Pulse Ox O2 O2 Flow FiO2 Time Delivery Rate 03/08/19 60 08:04 03/08/19 Nasal 2.0 07:35 Cannula 03/08/19 98.0 20 170/80 98 07:33 (110) Intake and Output 03/07/19 03/07/19 03/08/19 1515:00 23:00 07:00 IntakeIntake Total 900 ml 240 ml BalanceBalance 900 ml 240 ml Exam General: WN/WD/NAD, AOx 3 HEENT: Unicetric/atraumatic/EOMI (follow commands) NECK: JVD elevated, no thyromegaly Lymph: no lymphadenopathy HEART: regular with no S3, II/ systolic murmur at apex, PMI L LUNGS: Coarse sounds ABD: soft, NT, ND, +BS : Intact Neuro: non focal SKIN: chronic changes EXT: 1+ edema Results/Medications Result Diagram: 03/08/19 0503 03/08/19 0503 Results 24 hrs Laboratory Tests Test 03/07/19 12:17 03/07/19 13:57 03/07/19 17:23 03/07/19 20:56 Bedside Glucose 150 291 H 396 H Sodium Level 140 Potassium Level 4.6 Chloride Level 96 L Carbon Dioxide Level 34 H Anion Gap 10 Blood Urea Nitrogen 33 H Creatinine 0.73 Est Glomerular > 60 Filtrat Rate mL/min Glucose Level 197 Calcium Level 9.8 Test 03/08/19 02:04 03/08/19 05:03 03/08/19 08:07 Bedside Glucose 146 110 White Blood Count 15.0 H Red Blood Count 4.71 Hemoglobin 14.7 Hematocrit 45.9 Mean Corpuscular 97.5 Volume Mean Corpuscular 31.2 Hemoglobin Mean Corpuscular 32.0 Hemoglobin Concent Red Cell 12.6 Distribution Width Platelet Count 262 Mean Platelet Volume 10.7 H Immature 0.500 H Granulocytes % Neutrophils % 75.9 Lymphocytes % 14.3 L Monocytes % 9.1 Eosinophils % 0.1 Basophils % 0.1 Nucleated Red Blood 0.0 Cells % Immature 0.080 H Granulocytes # Neutrophils # 11.4 H Lymphocytes # 2.2 Monocytes # 1.4 H Eosinophils # 0.0 Basophils # 0.0 Nucleated Red Blood 0.0 Cells # Sodium Level 140 Potassium Level 4.4 Chloride Level 97 Carbon Dioxide Level 38 H Anion Gap 5 Blood Urea Nitrogen 30 H Creatinine 0.88 Est Glomerular > 60 Filtrat Rate mL/min Glucose Level 132 # Calcium Level 9.3 Home Meds Reported Medications Meloxicam* (Mobic*) 15 Mg Tablet, 15 MG PO DAILY, #30 TAB 02/27/19 Albuterol Sulfate* (Ventolin HFA*) 18 Gm Hfa.aer.ad, 2 PUFF INHALATION Q4H, #1 INHALER 02/27/19 Tramadol Hcl* (Ultram*) 50 Mg Tablet, 50 MG PO NEEDED PRN for PAIN, TAB 02/27/19 Simvastatin* (Zocor*) 40 Mg Tablet, 40 MG PO QHS, #30 TAB 02/27/19 Sildenafil Citrate* (Sildenafil Citrate*) 20 Mg Tablet, 20 MG PO TID, TAB 02/27/19 Oxybutynin Chloride* (Ditropan*) 5 Mg Tab, 5 MG PO TID, TAB 02/27/19 Montelukast Sodium* (Montelukast Sodium*) 10 Mg Tablet, 10 MG PO QHS, #30 TAB 02/27/19 Metoprolol Succinate* (Toprol XL*) 100 Mg Tab.sr.24h, 100 MG PO DAILY, #30 TAB 02/27/19 Metformin Hcl* (Metformin Hcl*) 1,000 Mg Tablet, 1000 MG PO WITH BREAKFAST DI NNE, #60 TAB 02/27/19 Lisinopril* (Lisinopril*) 40 Mg Tablet, 40 MG PO DAILY, #30 TAB 02/27/19 Isosorbide Mononitrate* (Isosorbide Mononitrate*) 60 Mg Tab.er.24h, 60 MG PO DAILY, TAB 02/27/19 Glipizide* (Glipizide*) 5 Mg Tablet, 5 MG PO AC BREAKFAST, TAB 02/27/19 Furosemide* (Furosemide*) 40 Mg Tablet, 40 MG PO DAILY, TAB 02/27/19 Cyclobenzaprine Hcl* (Cyclobenzaprine Hcl*) 5 Mg Tablet, 5 MG PO QHS, #60 TAB 02/27/19 Potassium Chloride* (K-Dur*) 10 Meq Tab.prt.sr, 10 MEQ PO DAILY, TAB 02/27/19 Metoclopramide Hcl* (Metoclopramide Hcl*) 10 Mg Tablet, 10 MG PO TID, TAB 02/27/19 Fluticasone/Vilanterol (Breo Ellipta 200-25 Mcg INH) 1 Each Blst.w.dev, 1 PUFF INHALATION DAILY, #1 INHALER 02/27/19 Aspirin* (Aspirin* EC) 81 Mg Tablet.dr, 81 MG PO DAILY, TAB 02/27/19 Nitroglycerin* (Nitroglycerin* SL) 0.4 Mg Tab.subl, 0.4 MG SL Q5MIN PRN for CHEST PAIN, BOTTLE 02/27/19 Naproxen* (Naproxen*) 500 Mg Tablet, 500 MG PO BID, TAB 02/27/19 Gabapentin* (Gabapentin*) 100 Mg Capsule, 100 MG PO BID, #90 CAP 02/27/19 Medications Current Medications Ondansetron HCl (Zofran Inj) 4 mg Q6H PRN IV NAUSEA AND/OR VOMITING; Start 02/27/19 at 19:00 Diagnostic Test (Pha) (Accu-Chek) 1 ea 02 XX Last administered on 03/08/19at 02:05; Admin Dose 1 EA; Start 02/28/19 at 02:00 Insulin Aspart (Novolog Insulin Pen) NOVOLOG *MODERATE* ALGORITHM WITH MEALS BEDTIME SC Last administered on 03/07/19at 17:34; Admin Dose 8 UNIT; Start 02/27/19 at 21:00 Miscellaneous Information 1 ea NOTE XX ; Start 02/27/19 at 19:30 Glucose (Glutose) 15 gm Q15M PRN PO DECREASED GLUCOSE; Start 02/27/19 at 19:30 Glucose (Glutose) 22.5 gm Q15M PRN PO DECREASED GLUCOSE; Start 02/27/19 at 19:30 Dextrose (D50w Syringe) 25 ml Q15M PRN IV DECREASED GLUCOSE; Start 02/27/19 at 19:30 Dextrose (D50w Syringe) 50 ml Q15M PRN IV DECREASED GLUCOSE; Start 02/27/19 at 1 9:30 Glucagon (Glucagen) 1 mg Q15M PRN IM DECREASED GLUCOSE; Start 02/27/19 at 19:30 Glucose (Glutose) 15 gm Q15M PRN BUCCAL DECREASED GLUCOSE; Start 02/27/19 at 19:30 Nitroglycerin (Nitroglycerin (Sl Tab) 0.4 Mg) 1 tab Q5M PRN SL ANGINA; Start 02/28/19 at 11:30 Aspirin (Halfprin) 81 mg DAILY PO Last administered on 03/08/19 08:08; Admin Dose 81 MG; Start 03/01/19 at 09:00 Isosorbide Mononitrate (Imdur) 60 mg DAILY PO Last administered on 03/08/19 08:09; Admin Dose 60 MG; Start 03/01/19 at 09:00 Lisinopril (Zestril) 40 mg DAILY PO Last administered on 03/08/19 08:09; Admin Dose 40 MG; Start 03/01/19 at 09:00 Metoprolol Succinate (Toprol Xl) 100 mg DAILY PO Last administered on 03/08/19 08:10; Admin Dose 100 MG; Start 03/01/19 at 09:00 Atorvastatin Calcium (Lipitor) 20 mg DAILY@21 PO Last administered on 03/07/19 20:53; Admin Dose 20 MG; Start 02/28/19 at 21:00 Senna (Senokot) 2 tab BID PO Last administered on 03/08/19 08:08; Admin Dose 2 TAB; Start 03/01/19 at 23:30 Albuterol/ Ipratropium (Duoneb) 3 ml Q4H RESP THERAPY PRN HHN SHORTNESS OF BREATH; Start 03/03/19 at 19:30 Febuxostat (Uloric) 40 mg DAILY PO Last administered on 03/08/19 08:08; Admin Dose 40 MG; Start 03/07/19 at 09:00 Furosemide (Lasix) 40 mg BID DIURETICS PO Last administered on 03/08/19at 06:36; Admin Dose 40 MG; Start 03/07/19 at 18:00 Methylprednisolone Sodium Succinate (Solu-Medrol) 20 mg DAILY IV ; Start 03/08/19 at 09:00 Assessment/Plan Hospital Course (Demo Recall) 1. Chest pain, assess for acute coronary syndrome. Negative troponin x2 at this time, somewhat atypical symptomatology for cardiology and multiple cardiac risk factors. Not able to do stress test as pt was symptomatic with dizziness and tachy - will hold off on diuresis and follow. Much better overalll. 2. Congestive heart failure, question systolic versus diastolic, likely acute per story. Con't afterload reduction Now convert to PO diuresis. 3. Hypertension - on hig hside now - dennys re-check, add rx if elevated. 4. Dyslipidemia by history. 5. Abnormal electrocardiogram, assess for acute coronary syndrome. 6. Premature ventricular contractions, assess for acute coronary syndrome - no symptoms now. 7. Right heel ankle pain. 8. Diabetes mellitus- on meds, keep euglycemic. 9. Leukocytosis- con't anti-bx. HELEN ROY MD Mar 08, 2019 08:56
[2019-03-08] MEDS: METHYLPREDNISOLONE 40 MG INJ IV SCH (09:13)
--- NOTE | 2019-03-08 15:28 | PN ---
Date/Time of Note Date/Time of Note DATE: 03/08/19 TIME: 15:24 Assessment/Plan VTE Prophylaxis Risk score (from Ns)>0 risk: 5 SCD applied (from Nsg): Yes Pharmacological prophylaxis: other Lines/Catheters IV Catheter Type (from Nrsg): Saline Lock Urinary Cath still in place: No Assessment/Plan Hospital Course Patient states improvement in R leg pain, denies chest pain. Continue PT. leukocytosis most likely due to steroids no fever, will check CBC tomorrow. Assessment/Plan -Chest pain, rule out acute coronary syndrome, cardiac enzymes are neg x 3. Lexiscan with no ischemia/EF 54%. Dr. Gould is following in cardiology consultation. -Possible gout flareup, continue Uloric and Solu-Medrol. -Acute on chronic diastolic dysfunction CHF with preserved EF 55%. Continue Lasix monitor electrolytes. -Intractable right foot pain swelling and inability to walk. Osteoarthrosis of tarsometatarsal joints of the right foot and first metatarsophalangeal joint. podiatry consult Dr. Hurst. -Diabetes mellitus type 2 -HTN -Morbid obesity with BMI of 46.1 Further recommendations based on clinical course. Plan of care discussed with Dr. De La Paz. Result Diagram: 03/08/19 0503 03/08/19 0503 Results 24hrs Laboratory Tests Test 03/07/19 17:23 03/07/19 20:56 03/08/19 02:04 03/08/19 05:03 Bedside Glucose 291 H 396 H 146 White Blood Count 15.0 H Red Blood Count 4.71 Hemoglobin 14.7 Hematocrit 45.9 Mean Corpuscular 97.5 Volume Mean Corpuscular 31.2 Hemoglobin Mean Corpuscular 32.0 Hemoglobin Concent Red Cell 12.6 Distribution Width Platelet Count 262 Mean Platelet Volume 10.7 H Immature 0.500 H Granulocytes % Neutrophils % 75.9 Lymphocytes % 14.3 L Monocytes % 9.1 Eosinophils % 0.1 Basophils % 0.1 Nucleated Red Blood 0.0 Cells % Immature 0.080 H Granulocytes # Neutrophils # 11.4 H Lymphocytes # 2.2 Monocytes # 1.4 H Eosinophils # 0.0 Basophils # 0.0 Nucleated Red Blood 0.0 Cells # Sodium Level 140 Potassium Level 4.4 Chloride Level 97 Carbon Dioxide Level 38 H Anion Gap 5 Blood Urea Nitrogen 30 H Creatinine 0.88 Est Glomerular > 60 Filtrat Rate mL/min Glucose Level 132 # Calcium Level 9.3 Test 03/08/19 08:07 03/08/19 12:00 Bedside Glucose 110 234 H Exam/Review of Systems Exam Vitals Vital Signs Date Temp Pulse Resp B/P (MAP) Pulse Ox O2 O2 Flow FiO2 Time Delivery Rate 03/08/19 98.0 69 18 120/61 98 12:16 (80) 03/08/19 Nasal 2.0 07:35 Cannula Intake and Output 03/07/19 03/07/19 03/08/19 1515:00 23:00 07:00 IntakeIntake Total 900 ml 240 ml BalanceBalance 900 ml 240 ml Exam Constitutional: alert, oriented Respiratory: clear to auscultation Cardiovascular: regular rate and rhythm Gastrointestinal: soft, non-tender Musculoskeletal: nl extremities to inspection Extremities: normal pulses, other Results Results 24hrs Laboratory Tests Test 03/07/19 17:23 03/07/19 20:56 03/08/19 02:04 03/08/19 05:03 Bedside Glucose 291 H 396 H 146 White Blood Count 15.0 H Red Blood Count 4.71 Hemoglobin 14.7 Hematocrit 45.9 Mean Corpuscular 97.5 Volume Mean Corpuscular 31.2 Hemoglobin Mean Corpuscular 32.0 Hemoglobin Concent Red Cell 12.6 Distribution Width Platelet Count 262 Mean Platelet Volume 10.7 H Immature 0.500 H Granulocytes % Neutrophils % 75.9 Lymphocytes % 14.3 L Monocytes % 9.1 Eosinophils % 0.1 Basophils % 0.1 Nucleated Red Blood 0.0 Cells % Immature 0.080 H Granulocytes # Neutrophils # 11.4 H Lymphocytes # 2.2 Monocytes # 1.4 H Eosinophils # 0.0 Basophils # 0.0 Nucleated Red Blood 0.0 Cells # Sodium Level 140 Potassium Level 4.4 Chloride Level 97 Carbon Dioxide Level 38 H Anion Gap 5 Blood Urea Nitrogen 30 H Creatinine 0.88 Est Glomerular > 60 Filtrat Rate mL/min Glucose Level 132 # Calcium Level 9.3 Test 03/08/19 08:07 03/08/19 12:00 Bedside Glucose 110 234 H Medications Medication Current Medications Ondansetron HCl (Zofran Inj) 4 mg Q6H PRN IV NAUSEA AND/OR VOMITING; Start 02/27/19 at 19:00 Diagnostic Test (Pha) (Accu-Chek) 1 ea 02 XX Last administered on 03/08/19at 02:05; Admin Dose 1 EA; Start 02/28/19 at 02:00 Insulin Aspart (Novolog Insulin Pen) NOVOLOG *MODERATE* ALGORITHM WITH MEALS BEDTIME SC Last administered on 03/08/19at 12:05; Admin Dose 6 UNIT; Start 02/27/19 at 21:00 Miscellaneous Information 1 ea NOTE XX ; Start 02/27/19 at 19:30 Glucose (Glutose) 15 gm Q15M PRN PO DECREASED GLUCOSE; Start 02/27/19 at 19:30 Glucose (Glutose) 22.5 gm Q15M PRN PO DECREASED GLUCOSE; Start 02/27/19 at 19:30 Dextrose (D50w Syringe) 25 ml Q15M PRN IV DECREASED GLUCOSE; Start 02/27/19 at 19:30 Dextrose (D50w Syringe) 50 ml Q15M PRN IV DECREASED GLUCOSE; Start 02/27/19 at 19:30 Glucagon (Glucagen) 1 mg Q15M PRN IM DECREASED GLUCOSE; Start 02/27/19 at 19:30 Glucose (Glutose) 15 gm Q15M PRN BUCCAL DECREASED GLUCOSE; Start 02/27/19 at 19:30 Nitroglycerin (Nitroglycerin (Sl Tab) 0.4 Mg) 1 tab Q5M PRN SL ANGINA; Start 02/28/19 at 11:30 Aspirin (Halfprin) 81 mg DAILY PO Last administered on 03/08/19at 08:08; Admin Dose 81 MG; Start 03/01/19 at 09:00 Isosorbide Mononitrate (Imdur) 60 mg DAILY PO Last administered on 03/08/19at 08:09; Admin Dose 60 MG; Start 03/01/19 at 09:00 Lisinopril (Zestril) 40 mg DAILY PO Last administered on 03/08/19 08:09; Admin Dose 40 MG; Start 03/01/19 at 09:00 Metoprolol Succinate (Toprol Xl) 100 mg DAILY PO Last administered on 03/08/19at 08:10; Admin Dose 100 MG; Start 03/01/19 at 09:00 Atorvastatin Calcium (Lipitor) 20 mg DAILY@21 PO Last administered on 03/07/19at 20:53; Admin Dose 20 MG; Start 02/28/19 at 21:00 Senna (Senokot) 2 tab BID PO Last administered on 03/08/19at 08:08; Admin Dose 2 TAB; Start 03/01/19 at 23:30 Albuterol/ Ipratropium (Duoneb) 3 ml Q4H RESP THERAPY PRN HHN SHORTNESS OF BREATH; Start 03/03/19 at 19:30 Febuxostat (Uloric) 40 mg DAILY PO Last administered on 03/08/19at 08:08; Admin Dose 40 MG; Start 03/07/19 at 09:00 Furosemide (Lasix) 40 mg BID DIURETICS PO Last administered on 03/08/19at 06:36; Admin Dose 40 MG; Start 03/07/19 at 18:00 Methylprednisolone Sodium Succinate (Solu-Medrol) 20 mg DAILY IV Last administered on 03/08/19at 09:13; Admin Dose 20 MG; Start 03/08/19 at 09:00 REBECCA CASTELLANO Mar 08, 2019 15:28
--- NOTE | 2019-03-08 16:59 | RADRPT ---
Vent Rate: 76 bpm RR Interval: 784 msec CA Interval: 157 msec QRS Duration: 98 msec QT Interval: 415 msec QTC Interval: 469 msec P-R-T [place]: 61 - 31 - -3 degrees Sinus rhythm...normal P axis, V-rate 50- 99 Ventricular trigeminy...trigeminy string>6 w/ V complexes Electronically Signed By: Selwyn Kelley
[2019-03-08] MEDS: ATORVASTATIN 20 MG TAB PO SCH (20:40)
[2019-03-09] VITALS (9 sets, daily range): BP systolic 107–157; BP diastolic 58–64; PULSE 53–83; RESP 18–22
[2019-03-09] MEDS: ACCU-CHEK XX SCH (02:27)
[2019-03-09] MEDS: FUROSEMIDE 40 MG TAB PO SCH ×2 (06:33→17:37)
[2019-03-09] MEDS: INSULIN ASPART [NOVOLOG] 3 ML PEN SC SCH ×3 (08:00→17:52)
[2019-03-09] MEDS: METOPROLOL (XL) 100 MG TAB PO SCH (08:35)
[2019-03-09] MEDS: ISOSORBIDE MONONITRATE(SR)60 MG TAB PO SCH (08:35)
[2019-03-09] MEDS: ASPIRIN (EC) 81 MG TAB PO SCH (08:35)
[2019-03-09] MEDS: LISINOPRIL 20 MG TAB PO SCH (08:36)
[2019-03-09] MEDS: FEBUXOSTAT 40 MG TABLET PO SCH (08:36)
[2019-03-09] MEDS: METHYLPREDNISOLONE 40 MG INJ IV SCH (08:36)
[2019-03-09] MEDS: SENNA TAB PO SCH (08:36)
[2019-03-09] MEDS ORDERED: FURO40TA4 PO (14:22)
[2019-03-09] MEDS ORDERED: FEBU40TA PO (14:22)
[2019-03-09] MEDS ORDERED: MED4DP PO (14:22)
--- NOTE | 2019-03-09 14:45 | CONS ---
Assessment/Plan Assessment/Plan Hospital Course (Demo Recall) IMPRESSION: 1. Chest pain, assess for acute coronary syndrome. Negative troponin x2 at this time, somewhat atypical symptomatology for cardiology and multiple cardiac risk factors-neg trop 3, Lexiscan with no ischemia/EF 54% 2. Congestive heart failure-diastolic acute 3. Hypertension.-reasonable control 4. Dyslipidemia by history. 5. Abnormal electrocardiogram, assess for acute coronary syndrome. 6. Premature ventricular contractions, assess for acute coronary syndrome. 7. Right heel ankle pain.-MRI negative for osteop/arterial JACQUELYN without sig PAD. improved pain 8. Diabetes mellitus. 9. Leukocytosis. 10. Dizziness Recc: -Tele -Contineu BB/ACEI -Continue statin/asa -Continue imdur -Contineu steroids/bronchodilators -Contineu lasix diuresis now PO. ok for d/c from cardiac standpoint Consultation Date/Type/Reason Admit Date/Time Feb 28, 2019 at 15:28 Initial Consult Date 02/28/19 Type of Consult Cardiology Reason for Consultation CHF/chest pain Requesting Provider: SHEEBA CEJA MD Date/Time of Note DATE: 03/09/19 TIME: 14:43 Exam/Review of Systems Vital Signs Vitals Vital Signs Date Temp Pulse Resp B/P (MAP) Pulse Ox O2 O2 Flow FiO2 Time Delivery Rate 03/09/19 92 Room Air 12:52 03/09/19 70 12:00 03/09/19 97.9 20 107/58 2.0 11:33 (74) Intake and Output 03/08/19 03/08/19 03/09/19 1515:00 23:00 07:00 IntakeIntake Total 920 ml 240 ml BalanceBalance 920 ml 240 ml Exam Exam Review of Systems: CONSTITUTIONAL: No fevers, chills. PULMONARY: No sob CARDIOVASCULAR: No chest pain/palpitations GASTROINTESTINAL: No nausea/vomiting. GENITOURINARY: No hematuria/dysuria. MUSCULOSKELETAL: No myagias/arthalgias. PSYCHIATRIC: The patient denies depression. NEUROLOGIC: No weakness Constitutional: alert, oriented Psych: no complaints Head: normocephalic ENMT: mucosa pink and moist Neck: supple, jvd (9 cm water) Respiratory: clear to auscultation Cardiovascular: regular rate and rhythm Gastrointestinal: soft, non-tender Musculoskeletal: muscle weakness (mild generalized) Extremities: edema (trace/B) Labs Result Diagram: 03/09/19 0538 03/09/19 0538 Results 24hrs Laboratory Tests Test 03/08/19 16:50 03/08/19 20:37 03/08/19 20:56 03/09/19 02:26 Bedside Glucose 173 306 H 282 H 117 Test 03/09/19 05:38 03/09/19 07:58 03/09/19 12:03 White Blood Count 14.1 H Red Blood Count 4.70 Hemoglobin 14.9 Hematocrit 46.6 Mean Corpuscular 99.1 Volume Mean Corpuscular 31.7 Hemoglobin Mean Corpuscular 32.0 Hemoglobin Concent Red Cell 12.6 Distribution Width Platelet Count 257 Mean Platelet Volume 10.8 H Immature 0.600 H Granulocytes % Neutrophils % 72.0 Lymphocytes % 18.2 Monocytes % 8.6 Eosinophils % 0.5 Basophils % 0.1 Nucleated Red Blood 0.0 Cells % Immature 0.080 H Granulocytes # Neutrophils # 10.1 H Lymphocytes # 2.6 Monocytes # 1.2 H Eosinophils # 0.1 Basophils # 0.0 Nucleated Red Blood 0.0 Cells # Sodium Level 144 Potassium Level 4.7 Chloride Level 98 Carbon Dioxide Level 38 H Anion Gap 8 Blood Urea Nitrogen 31 H Creatinine 0.77 Est Glomerular > 60 Filtrat Rate mL/min Glucose Level 119 Calcium Level 8.9 Bedside Glucose 99 228 H Medications Medications Current Medications Ondansetron HCl (Zofran Inj) 4 mg Q6H PRN IV NAUSEA AND/OR VOMITING; Start 02/27/19 at 19:00 Diagnostic Test (Pha) (Accu-Chek) 1 ea 02 XX Last administered on 03/09/19at 02:27; Admin Dose 1 EA; Start 02/28/19 at 02:00 Insulin Aspart (Novolog Insulin Pen) NOVOLOG *MODERATE* ALGORITHM WITH MEALS BEDTIME SC Last administered on 03/09/19at 12:10; Admin Dose 6 UNIT; Start 02/27/19 at 21:00 Miscellaneous Information 1 ea NOTE XX ; Start 02/27/19 at 19:30 Glucose (Glutose) 15 gm Q15M PRN PO DECREASED GLUCOSE; Start 02/27/19 at 19:30 Glucose (Glutose) 22.5 gm Q15M PRN PO DECREASED GLUCOSE; Start 02/27/19 at 19:30 Dextrose (D50w Syringe) 25 ml Q15M PRN IV DECREASED GLUCOSE; Start 02/27/19 at 19:30 Dextrose (D50w Syringe) 50 ml Q15M PRN IV DECREASED GLUCOSE; Start 02/27/19 at 19:30 Glucagon (Glucagen) 1 mg Q15M PRN IM DECREASED GLUCOSE; Start 02/27/19 at 19:30 Glucose (Glutose) 15 gm Q15M PRN BUCCAL DECREASED GLUCOSE; Start 02/27/19 at 19:30 Nitroglycerin (Nitroglycerin (Sl Tab) 0.4 Mg) 1 tab Q5M PRN SL ANGINA Last administered on 03/09/19 06:38; Admin Dose 1 TAB; Start 02/28/19 at 11:30 Aspirin (Halfprin) 81 mg DAILY PO Last administered on 03/09/19 08:35; Admin Dose 81 MG; Start 03/01/19 at 09:00 Isosorbide Mononitrate (Imdur) 60 mg DAILY PO Last administered on 03/09/19 08:35; Admin Dose 60 MG; Start 03/01/19 at 09:00 Lisinopril (Zestril) 40 mg DAILY PO Last administered on 03/09/19 08:36; Admin Dose 40 MG; Start 03/01/19 at 09:00 Metoprolol Succinate (Toprol Xl) 100 mg DAILY PO Last administered on 03/09/19 08:35; Admin Dose 100 MG; Start 03/01/19 at 09:00 Atorvastatin Calcium (Lipitor) 20 mg DAILY@21 PO Last administered on 03/08/19 20:40; Admin Dose 20 MG; Start 02/28/19 at 21:00 Senna (Senokot) 2 tab BID PO Last administered on 03/08/19 20:40; Admin Dose 2 TAB; Start 03/01/19 at 23:30 Albuterol/ Ipratropium (Duoneb) 3 ml Q4H RESP THERAPY PRN HHN SHORTNESS OF BREATH; Start 03/03/19 at 19:30 Febuxostat (Uloric) 40 mg DAILY PO Last administered on 03/09/19 08:36; Admin Dose 40 MG; Start 03/07/19 at 09:00 Furosemide (Lasix) 40 mg BID DIURETICS PO Last administered on 6/12/19at 06:33; Admin Dose 40 MG; Start 03/07/19 at 18:00 Methylprednisolone Sodium Succinate (Solu-Medrol) 20 mg DAILY IV Last administered on 03/09/19at 08:36; Admin Dose 20 MG; Start 03/08/19 at 09:00 HARPAL SIMONS Mar 09, 2019 14:45
--- NOTE | 2019-03-09 20:36 | DS ---
Date/Time of Note Date/Time of Note DATE: 03/09/19 TIME: 20:32 Discharge Summary Admission/Discharge Info Admit Date/Time Feb 28, 2019 at 15:28 Discharge Date/Time Mar 09, 2019 at 20:01 Patient Condition: Stable Hx of Present Illness The patient is 68-year-old female with diabetes mellitus type 2, congestive heart failure, hypertension, hyperlipidemia, asthma, osteoarthritis, sleep apnea and morbid obesity. Patient presented to the emergency room with complaints of chest pain of 3 days duration which has been intermittent. Patient describes pain as pressure-like sensation associated with mild difficu lty breathing. Patient was brought to the emergency room by her daughter. Patient also complains of right foot pain and swelling stated that she is unable to step on it. Patient denies any fever chills denies any nausea vomiting, diarrhea, constipation. Patient was given morphine and Zofran in the emergency room. Patient is admitted for further evaluation and management to telemetry floor for further evaluation and management. Hospital Course -Chest pain, resolved, rule out acute coronary syndrome, cardiac enzymes are neg x 3. Lexiscan with no ischemia/EF 54%. Dr. Gould is following in cardiology consultation. -Possible gout flareup, continue Uloric and Solu-Medrol. -Acute on chronic diastolic dysfunction CHF with preserved EF 55%. Continue Lasix monitor electrolytes. -Intractable right foot pain swelling and inability to walk. Osteoarthrosis of tarsometatarsal joints of the right foot and first metatarsophalangeal joint. podiatry consult Dr. Hurst. -Diabetes mellitus type 2 -HTN -Morbid obesity with BMI of 46.1 -DALJIT, pt has oxygen at home and Bipap machine that she uses at night. Plan of care discussed with Dr. De La Paz. Home Meds Active Scripts Methylprednisolone* (Medrol* DOSE PACK) 4 Mg/Dose-Pack Tab.ds.pk, 4 MG PO . DIRECTED, #1 PACKET Prov:REBECCA CASTELLANO 03/09/19 Febuxostat* (Uloric*) 40 Mg Tablet, 40 MG PO DAILY for 30 Days, TAB Prov:REBECCA CASTELLANO 03/09/19 Furosemide* (Furosemide*) 40 Mg Tablet, 40 MG PO BID DIURETICS for 30 Days, TAB Prov:REBECCA CASTELLANO 03/09/19 Reported Medications Albuterol Sulfate* (Ventolin HFA*) 18 Gm Hfa.aer.ad, 2 PUFF INHALATION Q4H, #1 INHALER 02/27/19 Tramadol Hcl* (Ultram*) 50 Mg Tablet, 50 MG PO NEEDED PRN for PAIN, TAB 02/27/19 Simvastatin* (Zocor*) 40 Mg Tablet, 40 MG PO QHS, #30 TAB 02/27/19 Metoprolol Succinate* (Toprol XL*) 100 Mg Tab.sr.24h, 100 MG PO DAILY, #30 TAB 02/27/19 Metformin Hcl* (Metformin Hcl*) 1,000 Mg Tablet, 1000 MG PO WITH BREAKFAST DINNE, #60 TAB 02/27/19 Lisinopril* (Lisinopril*) 40 Mg Tablet, 40 MG PO DAILY, #30 TAB 02/27/19 Isosorbide Mononitrate* (Isosorbide Mononitrate*) 60 Mg Tab.er.24h, 60 MG PO DAILY, TAB 02/27/19 Glipizide* (Glipizide*) 5 Mg Tablet, 5 MG PO AC BREAKFAST, TAB 02/27/19 Potassium Chloride* (K-Dur*) 10 Meq Tab.prt.sr, 10 MEQ PO DAILY, TAB 02/27/19 Fluticasone/Vilanterol (Breo Ellipta 200-25 Mcg INH) 1 Each Blst.w.dev, 1 PUFF I NHALATION DAILY, #1 INHALER 02/27/19 Aspirin* (Aspirin* EC) 81 Mg Tablet.dr, 81 MG PO DAILY, TAB 02/27/19 Nitroglycerin* (Nitroglycerin* SL) 0.4 Mg Tab.subl, 0.4 MG SL Q5MIN PRN for CHEST PAIN, BOTTLE 02/27/19 Discontinued Reported Medications Meloxicam* (Mobic*) 15 Mg Tablet, 15 MG PO DAILY, #30 TAB 02/27/19 Sildenafil Citrate* (Sildenafil Citrate*) 20 Mg Tablet, 20 MG PO TID, TAB 02/27/19 Oxybutynin Chloride* (Ditropan*) 5 Mg Tab, 5 MG PO TID, TAB 02/27/19 Montelukast Sodium* (Montelukast Sodium*) 10 Mg Tablet, 10 MG PO QHS, #30 TAB 02/27/19 Furosemide* (Furosemide*) 40 Mg Tablet, 40 MG PO DAILY, TAB 02/27/19 Cyclobenzaprine Hcl* (Cyclobenzaprine Hcl*) 5 Mg Tablet, 5 MG PO QHS, #60 TAB 02/27/19 Metoclopramide Hcl* (Metoclopramide Hcl*) 10 Mg Tablet, 10 MG PO TID, TAB 02/27/19 Naproxen* (Naproxen*) 500 Mg Tablet, 500 MG PO BID, TAB 02/27/19 Gabapentin* (Gabapentin*) 100 Mg Capsule, 100 MG PO BID, #90 CAP 02/27/19 Follow-up Plan Follow-up with Dr. Goldberg, podiatry in 1 to 2-week, follow-up with Dr. Gould in 2 weeks. Primary Care Provider Not On Staff Doctor Time spent on discharge: > 30 minutes Pending Labs Laboratory Tests Test 03/08/19 20:37 03/08/19 20:56 03/09/19 02:26 03/09/19 05:38 Bedside 306 282 117 Glucose mg/dL (70-220) mg/dL (70-220) mg/dL (70-220) White Blood 14.1 Count 10^3/ul (4.8-1 0.8) Red Blood 4.70 Count 10^6/ul (4.20- 5.40) Hemoglobin 14.9 g/dl (12.0-16. 0) Hematocrit 46.6 % (37.0-47.0) Mean 99.1 Corpuscular fl (82.0-101.0 Volume ) Mean 31.7 Corpuscular pg (29.0-33.0) Hemoglobin Mean 32.0 Corpuscular g/dl (32.0-37. Hemoglobin Conc 0) ent Red Cell 12.6 Distribution % (11.5-14.5) Width Platelet Count 257 10^3/UL (140-4 15) Mean Platelet 10.8 Volume fl (7.4-10.4) Immature 0.600 Granulocytes % % (0.001-0.429 ) Neutrophils % 72.0 % (39.0-77.0) Lymphocytes % 18.2 % (15.0-51.0) Monocytes % 8.6 % (0.0-11.0) Eosinophils % 0.5 % (0.0-7.0) Basophils % 0.1 % (0.0-2.0) Nucleated Red 0.0 Blood Cells % /100WBC (0.0-0 .0) Immature 0.080 Granulocytes # 10^3/ul (0.0-0 .031) Neutrophils # 10.1 10^3/ul (1.6-7 .5) Lymphocytes # 2.6 10^3/ul (0.8-2 .9) Monocytes # 1.2 10^3/ul (0.3-0 .9) Eosinophils # 0.1 10^3/ul (0.0-0 .5) Basophils # 0.0 10^3/ul (0.0-0 .1) Nucleated Red 0.0 Blood Cells # 10^3/ul (0.0-0 .0) Sodium Level 144 mmol/L (135-14 4) Potassium 4.7 Level mmol/L (3.5-5. 1) Chloride Level 98 mmol/L (97-110 ) Carbon Dioxide 38 Level mmol/L (21-31) Anion Gap 8 (5-13) Blood Urea 31 Nitrogen mg/dl (7-20) Creatinine 0.77 mg/dl (0.44-1. 00) Est Glomerular > 60 Filtrat mL/min (>60) Rate mL/min Glucose Level 119 mg/dl (70-220) Calcium Level 8.9 mg/dl (8.4-10. 2) Test 03/09/19 07:58 03/09/19 12:03 03/09/19 17:34 Bedside 99 228 226 Glucose mg/dL (70-220) mg/dL (70-220) mg/dL (70-220) REBECCA CASTELLANO Mar 09, 2019 20:36
== END 2019-03-09 20:01 | disposition home or self-care (01) | DRG 291 ==
LOC: E/R 13:21 → 6WM 15:27 → OBSVTOIN 02-28 15:28
PROVIDERS: ADMIT Internal Medicine; ATTEND Internal Medicine
DX: I11.0 Hypertensive heart disease with heart failure (principal); I50.31 Acute diastolic (congestive) heart failure; Z68.42 Body mass index [BMI] 45.0-49.9, adult; R07.9 Chest pain, unspecified; E66.01 Morbid (severe) obesity due to excess calories; M19.071 Primary osteoarthritis, right ankle and foot; E11.9 Type 2 diabetes mellitus without complications; M79.671 Pain in right foot; Z79.82 Long term (current) use of aspirin; G47.33 Obstructive sleep apnea (adult) (pediatric); I49.3 Ventricular premature depolarization; M25.571 Pain in right ankle and joints of right foot
CPT/HCPCS: 36415; 36600; 71045; 73630; 73718; 78452; 80048; 80053; 81001; 81003; 82550; 82553; 82803; 82962; 83880; 84484; 84560; 85025; 85610; 85730; 93005; 93017; 93306; 93926; 93970; 94664; 96374; 96375; 97116; 97162; G0378; A9500; A9505; C9113; J1815; J1885; J1940; J2270; J2405; J2785; J2920